=== PATIENT | female | born 1965 | race Caucasian/White ===

== ENCOUNTER 2024-04-16 06:46 | Emergency (ER) | payer MEDICARE, MEDICAID, SELFPAY ==
[2024-04-16 06:53] VITALS: BP 112/45; BP 128/67; PULSE 60; PULSE 65; RESP 16; TEMP 36.6; O2SAT 100; O2SAT 97; BMI 17.0
--- NOTE | 2024-04-16 07:14 | ED.GENADULT ---
HPI - General Adult General Chief complaint: General Medical Stated complaint: pulled out G tube, baseline nonverbal due to CVA Time Seen by Provider: 04/16/24 07:38 Source: EMS Mode of arrival: EMS History of Present Illness HPI narrative: 59 years old female no verbal, with G-tube sent by the residential because she pulled the G-tube out. Patient is unable to give any history at this time Onset (ago): hour(s) (1) Location: abdomen Radiation: non-radiation Severity: mild Relieving factors: none Exacerbating factors: none Related Data Allergies Allergy/AdvReac Type Severity Reaction Status Date / Time No Known Allergies Allergy Verified 04/16/24 06:55 Review of Systems Review of Systems: Yes Unobtainable due to mental condition PMFSH [facility] Narrative: intellectual disability, no verbal, dysphagia, G-tube Social History Social History (Updated 04/16/24 @ 07:17 by Juan Alberto Rashid MD) Household Members Other:: she lives in a residential Unable to assess alcohol history related to: Unable to respond Advance Directives: No Advance Directives Information Provided: No Do you have a plan to hurt others: No Plan Physical Exam ED Vital Signs: Vital Signs - 24 hr 04/16/24 06:53 04/16/24 08:49 Temperature 97.8 F 98 F Pulse Rate 65 78 Respiratory Rate 16 18 Blood Pressure 112/45 L 122/65 Pulse Oximetry 97 Oxygen Delivery Method Room Air Room Air BMI result Body Mass Index 17.0 patient is awake alert not toxic appearing Const General: other ( patient is uncooperative) Nutritional Appearance: malnourished HENIA Head: Yes normal to inspection Neck Neck: Yes normal visual inspection Resp Effort & Inspection: normal respiratory effort Auscultation: clear to auscultation bilaterally Cardio Jugular venous distension: no JVD Rate: regular rate Rhythm: regular rhythm GI Other: abdomen is flat G-tube site he open no redness Inspection: Yes normal to inspection Skin General skin exam: no rashes or lesions noted and elasticity normal Procedures Procedure Narrative Procedure Narrative: G-TUBE INSERTION I placed 20-F Gtube in the stomach easily,good flash Medical Decision Making Medical Decision Making MDM Narrative: patient presented with G-tube dislodged, we will go ahead and replace the G-tube Differential Diagnosis Differential Diagnoses: The differential diagnosis associated with the presentation includes obstruction/G-tube displacement Admission/Observation Consideration of admission/observation: Escalation of care including admission/observation considered Independent Historian Clinical information obtained from an independent historian. History obtained from or confirmed by: Other (residential documentation) External Record Review External record reviewed: Other (residential papers) Chronic Conditions non verbal Discharge Plan Discharge Clinical Impression: Encounter for feeding tube placement Patient Disposition: [facility] Transfer Details: BACK TO [facility] [place] Instructions: How to Use and Care for Your PEG Tube (ED) Referrals: Krisitn Carbajal MD [Primary Care Provider] - Interventions: ED Discharge Assessment Last Done: 04/16/24 08:49 Discharge Date/Time: 04/16/24 08:50 Print Language: Turkish
--- NOTE | 2024-04-16 07:51 | PC.NURSE ---
g tube flushes well, report called to snf
[2024-04-16 08:49] VITALS: BP 122/65; PULSE 78; RESP 18; TEMP 36.6
== END 2024-04-16 08:50 ==
PROVIDERS: Emergency Provider Emergency Medicine; PCP Internal Medicine
DX: Z46.59 Encounter for fitting and adjustment of other gastrointestinal appliance and device (principal)
CPT/HCPCS: 43762; 99284

== ENCOUNTER 2024-09-09 08:14 | Emergency (ER) | payer MEDICARE, MEDICAID, SELFPAY ==
--- NOTE | ~2024-09-09 | XR_ITS ---
CLINICAL HISTORY: G-tube placement 1 view abdomen Comparison: None Findings: There is oral contrast within the proximal jejunal loops without evidence of extravasation. G-tube is projected over the left upper outer quadrant of the abdomen Nonspecific bowel gas Impression: 1. Oral contrast opacifies the proximal jejunal loops without extravasation. No massive pneumoperitoneum. The bowel gas pattern is nonspecific. 2. G-tube projected left upper outer quadrant of the abdomen this may be in the stomach but there is no direct opacification of the stomach fluoroscopy study may be of further diagnostic value to confirm exact positioning This document has been electronically signed by: Christiano Garcia MD on 09/09/2024 09:19:48
[2024-09-09 08:22] VITALS: BP 135/97; PULSE 74; PULSE 87; RESP 16; TEMP 36.4; O2SAT 100; BMI 15.7
[2024-09-09 08:32] VITALS: BP 143/52; PULSE 96; RESP 18; TEMP 36.8; O2SAT 100
--- NOTE | 2024-09-09 08:40 | ED.GENADULT ---
HPI - General Adult General Chief complaint: General Medical Stated complaint: FROM SNF, G-TUBE DISLODGED PER EMS Time Seen by Provider: 09/09/24 08:23 Source: patient Mode of arrival: ambulatory Limitations: no limitations and physical limitation History of Present Illness ED Provider: DR. Shin HPI narrative: 59-year-old female resides at senior care history of CVA with aphasia patient is nonverbal, came in for evaluation of reinsertion of G-tube that the patient pulled out last night. Patient is unable to give a history at this point Related Data Allergies Allergy/AdvReac Type Severity Reaction Status Date / Time No Known Allergies Allergy Verified 09/09/24 08:27 Review of Systems Review of Systems: All other systems are reviewed and are negative Constitutional: Reports as per HPI and Reports no additional constitutional complaints Eyes: Reports as per HPI and Reports no additional eye complaints Reports system reviewed and no additional complaints, except as documented Cardiovascular: Reports as per HPI and Reports no additional cardiovascular complaints Respiratory: Reports as per HPI and Reports no additional respiratory complaints Gastrointestinal: Reports as per HPI and Reports no additional gastrointestinal complaints Genitourinary: Reports no additional female genitourinary complaints Musculoskeletal: Reports no additional musculoskeletal complaints Skin/Breast: Reports system reviewed and no additional complaints, except as docu Psychiatric: Reports no additional psychiatric complaints Endocrine: Reports no additional endocrine complaints Hematologic/Lymphatic: Reports no additional hematologic/lymphatic complaints Allergic/Immunologic: Reports no additional allergic/immunologic complaints Reports system reviewed and no additional complaints, except as documented and Reports Abnormal speech present REPLACED BY [facility] Social History Social History Household Members Other:: she lives in a senior care Unable to assess alcohol history related to: Unable to respond and Unknown Use of substances other than those prescribed or required for medical reasons: Unknown Advance Directives: No Advance Directives Information Provided: No Do you have a plan to hurt others: No Plan Patient : No Physical Exam ED Vital Signs: Vital Signs - 24 hr 09/09/24 08:22 09/09/24 08:32 Temperature 97.6 F 98.3 F Pulse Rate 87 96 Respiratory Rate 16 18 Blood Pressure 135/97 H 143/52 H Pulse Oximetry 100 100 Oxygen Delivery Method Room Air Room Air BMI result Body Mass Index 15.7 Vital signs have been reviewed and appear to be correct. Blood pressure elevated. Heart rate normal. Respiratory rate normal. Temperature normal. Oxygen saturation normal. Appearance: Alert, nonverbal, No acute distress. Head: Normal external exam. Normocephalic. Atraumatic. No Cardoso signs noted. No raccoon eyes noted Eyes: PERRLA. EOMI. Conjunctiva and sclera normal. Eyelids normal. ENT: TM's Normal. Pharynx normal. Uvula midline. Moist mucous membranes. No trismus noted. No drooling noted. No muffled voice noted. Neck: Normal inspection. Neck supple. FROM. No adenopathy. Thyroid Normal. No meningeal signs. No neck mass noted. CVS: Normal heart rate and rhythm. Heart sound normal. No murmurs noted. Pulses normal throughout. Respiratory: No respiratory distress. Painless inspiration. Breath sounds normal. No wheezes/rales/rhonchi noted. Chest nontender. No accessory muscle usage noted or decreased air movement noted. Abdomen: Soft and nontender. Bowel sounds normal in all 4 quadrants. No distention noted. No organomegaly noted. No visible injury noted. Back: No CVA tenderness. Full range of motion noted. Skin: Skin warm and dry. Normal skin color. Normal skin turgor. No rashes/lesions/lacerations noted. Extremities: No lower extremity edema. Extremities exhibit normal range of motion. Extremities nontender. Neuro: Cranial nerve exam: II-XII are grossly intact No motor deficit. No sensory deficit. Reflexes normal. Course Reevaluation(s) Reevaluation #1: S/p G-tube placement the ED, will confirm was x-ray and Gastrografin. Time: 08:44 Reevaluation #2: X-ray was checked no extravasation NG tube is in appropriate position. Time: 09:30 Medical Decision Making Differential Diagnosis Differential Diagnoses: The differential diagnosis associated with the presentation includes (G-tube placement) Admission/Observation Consideration of admission/observation: Escalation of care including admission/observation considered Independent Interpretation I performed an independent interpretation of an: Plain X-Ray (Abdomen:1. Oral contrast opacifies the proximal jejunal loops without extravasation. No massive pneumoperitoneum. The bowel gas pattern is nonspecific. 2. G-tube projected left upper outer quadrant of the abdomen this may be in the stomach but there is no direct opacification of the stomach fluo) Radiology Impression Discussion of test interpretation with radiology: I have reviewed the radiologist's reading. Discharge Plan Discharge Clinical Impression: S/P gastrostomy tube (G tube) placement, follow-up exam Patient Disposition: Xfer SNF Instructions: How to Use and Care for Your PEG Tube (ED) Print Language: Unable To Collect
--- OUTSIDE RECORDS SUMMARY | 2024-09-09 08:55 | XMS_ITS | Encounter Summary ---
Author Organization [employer] Address [address] [place] [address] Care Team Providers Care Senior Controls Analyst Name Role Phone Annie Carbajal MD Primary Care Provider + Encounter Details Date Type Department Care Team (Late st Contact Info) Description 04/06/2024 Lab Requisition [facility] - Main Lab [address] [facility] [place] [address] Annie Carbajal MD [address] [address] Vitamin D deficiency, unspecified; Essential (primary) hypertension Social History Tobacco Use Types Packs/Day Years Used Date Smoking Tobacco: Never Assessed Comments Unknown Sex and Gender Information Value Date Recorded Sex Assigned at Not on file Legal Sex Female 8:46 AM EST Gender Identity Not on file Sexual Orientation Not on file documented as of this encounter Plan of Treatment Not on file documented as of this encounter Procedures Procedure Name Priority Date/Time Associated Diagnosis Comments VITAMIN D 25 HYDROXY Routine 04/06/2024 7:58 AM EST Vitamin D deficiency, unspecified Essential (primary) hypertension COMPLETE BLOOD COUNT Routine 04/06/2024 7:58 AM EST Vitamin D deficiency, unspecified Essential (primary) hypertension COMPREHENSIVE METABOLIC PANEL Routine 04/06/2024 7:58 AM EST Vitamin D deficiency, unspecified Essential (primary) hypertension documented in this encounter Results * Vitamin D 25 hydroxy (04/06/2024 7:58 AM EST) Vit D, 25-Hydroxy 35.7 30.0 - 80.0 ng/mL LAB CHEMISTRY METHOD 04/06/2024 10:30 AM EST [facility] Blood Venous blood specimen / Unknown Venipuncture / Unknown 04/06/2024 7:58 AM EST 04/06/2024 8:50 AM EST us Annie Carbajal MD LAB BLOOD ORDERABLES Fin al Result [facility] [address] [place] [address], * (ABNORMAL) Comprehensive metabolic panel (04/06/2024 7:58 AM EST) Sodium 140 133 - 145 mmol/L LAB CHEMISTRY METHOD 04/06/2024 10:[address] [facility] Potassium 4.0 3.5 - 5.5 mmol/L LAB CHEMISTRY METHOD 04/06/2024 10:[address] [facility] Chloride 104 96 - 110 mmol/L LAB CHEMISTRY METHOD 04/06/2024 10:[address] [facility] CO2 27 21 - 32 mmol/L LAB CHEMISTRY METHOD 04/06/2024 10:[address] [facility] Anion Gap 9 3 - 11 LAB CHEMISTRY METHOD 04/06/2024 10:[address] [facility] Glucose 73 70 - 100 mg/dL LAB CHEMISTRY METHOD 04/06/2024 10:[address] [facility] BUN 29(H) 5 - 25 mg/dL LAB CHEMISTRY METHOD 04/06/2024 10:[address] [facility] Creatinine 0.53 0.50 - 1.10 mg/dL LAB CHEMISTRY METHOD 04/06/2024 10:[address] [facility] eGFR 106 >=60 mL/min/1. 73m2 LAB CHEMISTRY METHOD 04/06/2024 10:[address] [facility] Comment:Calculation based on the??Chronic Kidney Disease Epidemiology Collaboration (CKD-EPI) equation refit??without adjustment for race. BUN/Creatinine Ratio 54.7 LAB CHEMISTRY METHOD 04/06/2024 10:[address] [facility] Calcium 9.3 8.5 - 10.5 mg/dL LAB CHEMISTRY METHOD 04/06/2024 10:[address] [facility] AST (SGOT) 26 10 - 42 unit/L LAB CHEMISTRY METHOD 04/06/2024 10:[address] [facility] ALT (SGPT) 42 10 - 60 unit/L LAB CHEMISTRY METHOD 04/06/2024 10:[address] [facility] Alkaline Phosphatase 78 42 - 121 unit/L LAB CHEMISTRY METHOD 04/06/2024 10:[address] [facility] Total Protein 6.2 6.0 - 8.0 g/dL LAB CHEMISTRY METHOD 04/06/2024 10:[address] [facility] Albumin 3.3 3.2 - 5.0 g/dL LAB CHEMISTRY METHOD 04/06/2024 10:[address] [facility] Total Bilirubin 0.3 0.0 - 1.4 mg/dL LAB CHEMISTRY METHOD 04/06/2024 10:[address] [facility] Blood Venous blood specimen / Unknown Venipuncture / Unknown 04/06/2024 7:58 AM EST 04/06/2024 8:50 AM EST Annie Carbajal MD LAB BLOOD ORDERABLES Fin al Result [facility] [address] [place] [address], * (ABNORMAL) Complete blood count (04/06/2024 7:58 AM EST) WBC 8.4 4.8 - 10.8 K/mcL LAB HEMETOLOGY METHOD 04/06/2024 9:[address] [facility] RBC 4.40 3.80 - 4.80 M/mcL LAB HEMETOLOGY METHOD 04/06/2024 9:[address] [facility] Hemoglobin 12.4 11.5 - 16.0 g/dL LAB HEMETOLOGY METHOD 04/06/2024 9:[address] [facility] Hematocrit 39.7 35.0 - 47.0 % LAB HEMETOLOGY METHOD 04/06/2024 9:[address] [facility] MCV 89.8 79.0 - 98.0 FL LAB HEMETOLOGY METHOD 04/06/2024 9:[address] [facility] MCH 28.1 27.0 - 32.0 pcg LAB HEMETOLOGY METHOD 04/06/2024 9:[address] [facility] MCHC 31.2(L) 32.0 - 37.0 g/dL LAB HEMETOLOGY METHOD 04/06/2024 9:[address] [facility] RDW 13.2 11.0 - 15.0 % LAB HEMETOLOGY METHOD 04/06/2024 9:[address] [facility] Platelets 149 130 - 400 K/mcL LAB HEMETOLOGY METHOD 04/06/2024 9:[address] [facility] MPV 12.8(H) 7.0 - 11.0 FL LAB HEMETOLOGY METHOD 04/06/2024 9:[address] [facility] NRBC 0.0 <1.0 % LAB HEMETOLOGY METHOD 04/06/2024 9:[address] [facility] NRBC Absolute 0.00 <0.10 K/mcL LAB HEMETOLOGY METHOD 04/06/2024 9:[address] [facility] Blood Venous blood specimen / Unknown Venipuncture / Unknown 04/06/2024 7:58 AM EST 04/06/2024 8:50 AM EST Annie Carbajal MD LAB BLOOD ORDERABLES Fin al Result [facility] [address] [place] [address], documented in this encounter Visit Diagnoses Diagnosis Vitamin D deficiency, unspecified Essential (primary) hypertension Unspecified essential hypertension documented in this encounter Care Teams Senior Controls Analyst Relationship Specialty Start Date End Date Annie Carbajal MD [address] [place] [id number] PCP - General Family Medicine 04/06/24 documented as of this encounter
--- OUTSIDE RECORDS SUMMARY | 2024-09-09 08:55 | XMS_ITS ---
Author Name Delonte MARYAM, Mr. Art Hernadez Address [address] [place] [address] Phone [phone] [facility] Care Team Providers Care Application Manager Name Role Phone Kush Martel Unavailable [phone] KrisVenita Unavailable [phone] Reason for Referral Not Available Allergies, adverse reactions, alerts No known allergies History of medication use Medication Class Instructions Start Date End Date Benztropine Mesylate 1 mg Tab TAKE 1 AND 1/2 TABLETS BY MOUTH DAILY 2022-07-13 No Data Available Citalopram Hydrobromide 40 mg Tab TAKE 1 TABLET BY MOUTH DAILY 2022-09-28 No Data Tammy ilable Problem List Problem Status Onset Date Resolved Date History of brain tumor Active 2023-02-08 N/A Feeding by G-tube Active 2023-02-08 N/A Depression, recurrent, mild Active 2023-02-08 N/A Encounters Encounters Type Facility Date of Service Diagnosis/Co mplaint BMI obtained (3008F) [facility] ([place]/2023 Depression, unspecifiedPerso nal history of other specified conditionsUnspecified sequelae of cerebral infarctionGastrostomy status BMI obtained (3008F) [facility]23 BMI obtained (3008F[place] [facility] BMI obtained (3008F[place] [facility]23 Vital Signs Date of Collection Vitals 2023-02-08 08:21:05 Height - 160.02 cmWe ight - 50.35 kgBody Mass Index (BMI) - 19.66 kg/m2 Social History Social History Social History Observation Description Effec tive Time Current Smoking Status Former smoker 2024-08-15 7 Sex Female History of Procedures Procedures Service Procedure code Service date Servicing provider Phone# BMI obtained (3008F) 3008F 2023-02-08 No Data Availab le No Data Available Advance care planning discussed and documented ? advance care plan or surrogate decision-maker was documented in the medical record. (1123F) 1123F 2023-02-08 No Data Available No Data Availa ble Pain Assessment - NO pain present (1126F) 1126F 2023-02-08 No Data Available No Data A vailable Medication List Documented (1159F) 1159F 2023-02-08 No Data Available No Data Tammy ilable Functional Status Functional Category Effective Dates lives with sister/at a house with caregiver, cooking/cleaning: feeding tube 2023-02-08 walking/transfer: able to walk when she needs 2023-02-08 incontinent of stool/urine in the last 3 -4 wks 2023-02-08 Mental Status Status Date aox0, not able to talk for 2023-02-08 Assessments Date of Service Assessments 2023-02-08 08:21:05 DepressionHistory of brain tumorFeeding by G-tube Plan of Care Date of Service Plans 2023-02-08 08:21:05 BMI obtained (3008F) Pain Assessment - NO pain documented (1126F)Advance care planning discussed and documented ? advance care plan or surrogate decision-maker was documented in the medical record. (1123F)Medication List Documented (1159F)Phone (patient, parent, or guardian); 21-30 minutes of medical discussion (no modifier 95)Continue to see PCP. Follow-up with Izabela as needed for any acute or disease education needs that may arise 06/12.RX: citalopram followed and monitored PCP23 yrs ago had brain aneurysm and stroke followed and monitored by PCP RX: benzotropine mesylate for droolingon isosource 250 mL/6 per dayfollowed and monitored by PCP Health Concerns Date Concern 2023-02-08 Visit completed via audio by telephone. Patient/Guardian agreed to visit via telehealth. Introductory visit with Izabela to establish care. Today, patient has chief complaint of: establishing care. Visit completed with sister Maite who is POA as patient is non verbal. Consent obtained to access OC.Reviewed Allergies, Medications, Active Medical conditions, past medical/surgical history, Social history. 2023-02-08 Most recent hospital stay(s) or ER visit(s) and precipitating factors: not known. 2023-02-08 Maite MarshaJADE and sister. 2023-02-08 [facility] chao:
--- OUTSIDE RECORDS SUMMARY | 2024-09-09 08:55 | XMS_ITS | Encounter Summary ---
Author Organization [employer] [facility] Address [address] [place] [address] Care Team Providers Care Control Valve Mechanic Name Role Phone Elder, Annie Nur MD Primary Care Provider + Encounter Details Date Type Department Care Team (Late st Contact Info) Description 05/18/2024 Lab Requisition [facility] - Main Lab [address] [place] [address] [place] [phone] [address] Essential (primary) hypertension Social History Tobacco Use [...] Procedure Name Priority Date/Time Associated Diagnosis Comments COMPREHENSIVE METABOLIC PANEL Routine 05/18/2024 5:15 AM EST Essential (primary) hypertension documented in this encounter Results * (ABNORMAL) Comprehensive metabolic panel (05/18/2024 5:15 AM EST) Sodium 142 133 - 145 mmol/L LAB CHEMISTRY METHOD 05/18/2024 12:33 PM EST [facility] Potassium 4.7 3.5 - 5.5 mmol/L LAB CHEMISTRY METHOD 05/18/2024 12:33 PM EST [facility] Chloride 104 96 - 110 mmol/L LAB CHEMISTRY METHOD 05/18/2024 12:33 PM EST [facility] CO2 32 21 - 32 mmol/L LAB CHEMISTRY METHOD 05/18/2024 12:33 PM EST [facility] Anion Gap 6 3 - 11 LAB CHEMISTRY METHOD 05/18/2024 12:33 PM [facility] Glucose 114(H) 70 - 100 mg/dL LAB CHEMISTRY METHOD 05/18/2024 12:33 PM [facility] BUN 34(H) 5 - 25 mg/dL LAB CHEMISTRY METHOD 05/18/2024 12:33 PM [facility] Creatinine 0.62 0.50 - 1.10 mg/dL LAB CHEMISTRY METHOD 05/18/2024 12:33 PM [facility] eGFR 102 >=60 mL/min/1. 73m2 LAB CHEMISTRY METHOD 05/18/2024 12:33 PM [facility] Comment:Calculation based on the??Chronic Kidney Disease Epidemiology Collaboration (CKD-EPI) equation refit??without adjustment for race. BUN/Creatinine Ratio 54.8 LAB CHEMISTRY METHOD 05/18/2024 12:33 PM [facility] Calcium 9.3 8.5 - 10.5 mg/dL LAB CHEMISTRY METHOD 05/18/2024 12:33 PM [facility] AST (SGOT) 23 10 - 42 unit/L LAB CHEMISTRY METHOD 05/18/2024 12:33 PM [facility] ALT (SGPT) 41 10 - 60 unit/L LAB CHEMISTRY METHOD 05/18/2024 12:33 PM [facility] Alkaline Phosphatase 85 42 - 121 unit/L LAB CHEMISTRY METHOD 05/18/2024 12:33 PM [facility] Total Protein 6.6 6.0 - 8.0 g/dL LAB CHEMISTRY METHOD 05/18/2024 12:33 PM [facility] Albumin 3.1(L) 3.2 - 5.0 g/dL LAB CHEMISTRY METHOD 05/18/2024 12:33 PM [facility] Total Bilirubin 0.3 0.0 - 1.4 mg/dL LAB CHEMISTRY METHOD 05/18/2024 12:33 PM [facility] Blood Venous blood specimen / Unknown Venipuncture / Unknown 05/18/2024 5:15 AM EST 05/18/2024 10:44 AM EST us Jairo Valencia RN LAB BLOOD ORDERABLES Final Resu lt [facility] [address] [place] [address], documented in this encounter Visit Diagnoses Diagnosis Essential (primary) hypertension Unspecified essential hypertension documented in this encounter Care Teams Control Valve Mechanic Relationship Specialty Start Date End Date Annie Carbajal MD [address] [place] [id number] PCP - General Family Medicine 04/06/24 documented as of this encounter
--- OUTSIDE RECORDS SUMMARY | 2024-09-09 08:55 | XMS_ITS | Encounter Summary ---
Author Organization [employer] Address [address] [place] [address] Care Team Providers Care Steam Pressure Chamber Operator Name Role Phone Annie Carbajal MD Primary Care Provider + Encounter Details Date Type Department Care Team (Late st Contact Info) Description 05/30/2024 Lab Requisition [facility] - Main Lab [address] [facility] [place] [address] Annie Carbajal MD [address] [address] Essential (primary) hypertension Social History Tobacco Use Types Packs/Day Years Used Date Smoking Tobacco: Never Assessed Comments Unknown Sex and Gender Information Value Date Recorded Sex Assigned at Not on file Legal Sex Female 8:46 AM EST Gender Identity Not on file Sexual Orientation Not on file documented as of this encounter Plan of Treatment Not on file documented as of this encounter Visit Diagnoses Diagnosis Essential (primary) hypertension Unspecified essential hypertension documented in this encounter Care Teams Steam Pressure Chamber Operator Relationship Specialty Start Date End Date Annie Carbajal MD [address] [place] [id number] PCP - General Family Medicine 04/06/24 documented as of this encounter
--- OUTSIDE RECORDS SUMMARY | 2024-09-09 08:55 | XMS_ITS | Encounter Summary ---
Author Organization [employer] [facility] Address [address] [place] [address] Care Team Providers Care Lay Brother Name Role Phone Annie Carbajal MD Primary Care Provider + Encounter Details Date Type Department Care Team (Late st Contact Info) Description 05/31/2024 Lab Requisition [facility] - Main Lab 299 [facility] [place] [address] Annie Carbajal MD [address] [address] Essential (primary) hypertension Social History Tobacco Use [...] Procedure Name Priority Date/Time Associated Diagnosis Comments BASIC METABOLIC PANEL Routine 06/01/2024 5:14 AM EST Essential (primary) hypertension documented in this encounter Results * (ABNORMAL) Basic metabolic panel (06/01/2024 5:14 AM EST) Sodium 137 133 - 145 mmol/L LAB CHEMISTRY METHOD 06/01/2024 9:23 AM EST [facility] Potassium 4.6 3.5 - 5.5 mmol/L LAB CHEMISTRY METHOD 06/01/2024 9:23 AM EST [facility] Comment:Hemolysis present Chloride 102 96 - 110 mmol/L LAB CHEMISTRY METHOD 06/01/2024 9:23 AM EST [facility] CO2 31 21 - 32 mmol/L LAB CHEMISTRY METHOD 06/01/2024 9:23 AM [facility] Anion Gap 4 3 - 11 LAB CHEMISTRY METHOD 06/01/2024 9:23 AM [facility] Glucose 65(L) 70 - 100 mg/dL LAB CHEMISTRY METHOD 06/01/2024 9:23 AM [facility] BUN 26(H) 5 - 25 mg/dL LAB CHEMISTRY METHOD 06/01/2024 9:23 AM [facility] Creatinine 0.50 0.50 - 1.10 mg/dL LAB CHEMISTRY METHOD 06/01/2024 9:23 AM [facility] eGFR 108 >=60 mL/min/1. 73m2 LAB CHEMISTRY METHOD 06/01/2024 9:23 AM [facility] Comment:Calculation based on the??Chronic Kidney Disease Epidemiology Collaboration (CKD-EPI) equation refit??without adjustment for race. BUN/Creatinine Ratio 52.0 LAB CHEMISTRY METHOD 06/01/2024 9:23 AM [facility] Calcium 9.2 8.5 - 10.5 mg/dL LAB CHEMISTRY METHOD 06/01/2024 9:23 AM [facility] Blood Venous blood specimen / Unknown Venipuncture / Unknown 06/01/2024 5:14 AM EST 06/01/2024 8:40 AM EST us Annie Carbajal MD LAB BLOOD ORDERABLES Fin al Result [facility] [address] [place] [address], documented in this encounter Visit Diagnoses Diagnosis Essential (primary) hypertension Unspecified essential hypertension documented in this encounter Care Teams Lay Brother Relationship Specialty Start Date End Date Annie Carbajal MD [address] [place] [id number] PCP - General Family Medicine 04/06/24 documented as of this encounter
--- OUTSIDE RECORDS SUMMARY | 2024-09-09 08:55 | XMS_ITS | Encounter Summary ---
Author Organization [employer] [facility] Address [address] [place] [address] Care Team Providers Care Drilling Inspector Name Role Phone Annie Carbajal MD Primary Care Provider + Encounter Details Date Type Department Care Team (Late st Contact Info) Description 08/08/2024 Lab Requisition [facility] Lab 299 [facility] [place] [address] Annie Carbajal MD [address] [address] Essential (primary) hypertension Social History Tobacco Use [...] Associated Diagnosis Comments BASIC METABOLIC PANEL Routine 08/09/2024 5:03 AM EDT Essential (primary) hypertension documented in this encounter Results * (ABNORMAL) Basic metabolic panel (08/09/2024 5:03 AM EDT) Sodium 137 133 - 145 mmol/L LAB CHEMISTRY METHOD 08/09/2024 10:37 AM EDT [facility] Potassium 4.4 3.5 - 5.5 mmol/L LAB CHEMISTRY METHOD 08/09/2024 10:37 AM EDT [facility] Chloride 100 96 - 110 mmol/L LAB CHEMISTRY METHOD 08/09/2024 10:37 AM EDT [facility] CO2 30 21 - 32 mmol/L LAB CHEMISTRY METHOD 08/09/2024 10:37 AM EDT [facility] Anion Gap 7 3 - 11 LAB CHEMISTRY METHOD 08/09/2024 10:37 AM [facility] Glucose 76 70 - 100 mg/dL LAB CHEMISTRY METHOD 08/09/2024 10:37 AM [facility] BUN 28(H) 5 - 25 mg/dL LAB CHEMISTRY METHOD 08/09/2024 10:37 AM [facility] Creatinine 0.55 0.50 - 1.10 mg/dL LAB CHEMISTRY METHOD 08/09/2024 10:37 AM [facility] eGFR 105 >=60 mL/min/1. 73m2 LAB CHEMISTRY METHOD 08/09/2024 10:37 AM [facility] Comment:Calculation based on the??Chronic Kidney Disease Epidemiology Collaboration (CKD-EPI) equation refit??without adjustment for race. BUN/Creatinine Ratio 50.9 LAB CHEMISTRY METHOD 08/09/2024 10:37 AM [facility] Calcium 9.2 8.5 - 10.5 mg/dL LAB CHEMISTRY METHOD 08/09/2024 10:37 AM [facility] Blood Venous blood specimen / Unknown Venipuncture / Unknown 08/09/2024 5:03 AM EDT 08/09/2024 9:58 AM EDT us Annie Carbajal MD LAB BLOOD ORDERABLES Fin al Result [facility] [address] [place] [address], [place] [phone] documented in this encounter Visit Diagnoses Diagnosis Essential (primary) hypertension Unspecified essential hypertension documented in this encounter Care Teams Drilling Inspector Relationship Specialty Start Date End Date Annie Carbajal MD [address] [place] [phone] PCP - General Family Medicine 04/06/24 documented as of this encounter
--- OUTSIDE RECORDS SUMMARY | 2024-09-09 08:55 | XMS_ITS | Encounter Summary ---
Author Organization [facility] [facility] Address [address] [place] [address] Care Team Providers Care Help Desk Agent Name Role Phone Annie Carbajal MD Primary Care Provider + Encounter Details Date Type Department Care Team (Late st Contact Info) Description 04/10/[address] [facility] Lab 299 [facility] [place] [address] Annie Carbajal MD [address] [address] Underweight Social History Tobacco Use Types Packs/Day Years Used Date Smoking Tobacco: Never Assessed Comments Unknown Sex and Gender Information Value Date Recorded Sex Assigned at Not on file Legal Sex Female 8:46 AM EST Gender Identity Not on file Sexual Orientation Not on file documented as of this encounter Plan of Treatment Scheduled Orders Name Type Priority Associated Diagnoses Orde r Schedule Comprehensive metabolic panel Lab Routine Underweight Ordered: 04/10/2024 documented as of this encounter Procedures Procedure Name Priority Date/Time Associated Diagnosis Comments COMPLETE BLOOD COUNT Routine 04/10/2024 6:29 AM EST Underweight documented in this encounter Results * (ABNORMAL) Complete blood count (04/10/2024 6:29 AM EST) WBC 6.0 4.8 - 10.8 [facility] LAB HEMETOLOGY METHOD 04/10/2024 9:17 AM EST [facility] RBC 4.40 3.80 - 4.80 M/[facility] LAB HEMETOLOGY METHOD 04/10/2024 9:17 AM EST [facility] Hemoglobin 12.4 11.5 - 16.0 g/dL LAB HEMETOLOGY METHOD 04/10/2024 9:17 AM [facility] Hematocrit 39.2 35.0 - 47.0 % LAB HEMETOLOGY METHOD 04/10/2024 9:17 AM [facility] MCV 89.3 79.0 - 98.0 FL LAB HEMETOLOGY METHOD 04/10/2024 9:17 AM [facility] MCH 28.2 27.0 - 32.0 pcg LAB HEMETOLOGY METHOD 04/10/2024 9:17 AM [facility] MCHC 31.6(L) 32.0 - 37.0 g/dL LAB HEMETOLOGY METHOD 04/10/2024 9:17 AM [facility] RDW 13.3 11.0 - 15.0 % LAB HEMETOLOGY METHOD 04/10/2024 9:17 AM [facility] Platelets 142 130 - 400 K/mcL LAB HEMETOLOGY METHOD 04/10/2024 9:17 AM [facility] MPV 12.8(H) 7.0 - 11.0 FL LAB HEMETOLOGY METHOD 04/10/2024 9:17 AM [facility] NRBC 0.0 <1.0 % LAB HEMETOLOGY METHOD 04/10/2024 9:17 AM [facility] NRBC Absolute 0.00 <0.10 K/mcL LAB HEMETOLOGY METHOD 04/10/2024 9:17 AM [facility] Blood Venous blood specimen / Unknown Venipuncture / Unknown 04/10/2024 6:29 AM EST 04/10/2024 8:23 AM EST us Annie Carbajal MD LAB BLOOD ORDERABLES Fin al Result [facility] [address] [place] [address], documented in this encounter Visit Diagnoses Diagnosis Underweight documented in this encounter Care Teams Help Desk Agent Relationship Specialty Start Date End Date Annie Carbajal MD [address] [place] [address] PCP - General Family Medicine 04/06/24 documented as of this encounter
--- OUTSIDE RECORDS SUMMARY | 2024-09-09 08:55 | XMS_ITS | Encounter Summary ---
Author Organization [employer] Address [address] [place] [address] Care Team Providers Care Block Hacker Name Role Phone Annie Carbajal MD Primary Care Provider + Encounter Details Date Type Department Care Team (Late st Contact Info) Description 08/23/2024 Lab Requisition [facility] - Main Lab 299 [facility] [place] [address] Annie Carbajal MD [address] [facility] [address] [place] [address] Unspecified severe protein-calorie malnutrition (CMS/HCC V24); Hemiplegia and hemiparesis following cerebral infarction affecting left non-dominant side (CMS/HCC V24, CMS/HCC V28); Encounter for screening for diabetes mellitus Social History Tobacco Use Types Packs/Day Years [...] Procedure Name Priority Date/Time Associated Diagnosis Comments LIPID PANEL WITH REFLEX TO DIRECT LDL Routine 08/23/2024 7:35 AM EDT Unspecified severe protein-calorie malnutrition (CMS/HCC V24) Hemiplegia and hemiparesis following cerebral infarction affecting left non-dominant side (CMS/HCC V24, CMS/HCC V28) Encounter for screening for diabetes mellitus COMPLETE BLOOD COUNT Routine 08/23/2024 7:35 AM EDT Unspecified severe protein-calorie malnutrition (CMS/HCC V24) Hemiplegia and hemiparesis following cerebral infarction affecting left non-dominant side (CMS/HCC V24, CMS/HCC V28) Encounter for screening for diabetes mellitus THYROID STIMULATING HORMONE Routine 08/23/2024 7:35 AM EDT Unspecified severe protein-calorie malnutrition (CMS/HCC V24) Hemiplegia and hemiparesis following cerebral infarction affecting left non-dominant side (CMS/HCC V24, CMS/HCC V28) Encounter for screening for diabetes mellitus HEMOGLOBIN A1C Routine 08/23/2024 7:35 AM EDT Unspecified severe protein-calorie malnutrition (CMS/HCC V24) Hemiplegia and hemiparesis following cerebral infarction affecting left non-dominant side (CMS/HCC V24, CMS/HCC V28) Encounter for screening for diabetes mellitus COMPREHENSIVE METABOLIC PANEL Routine 08/23/2024 7:35 AM EDT Unspecified severe protein-calorie malnutrition (CMS/HCC V24) Hemiplegia and hemiparesis following cerebral infarction affecting left non-dominant side (CMS/HCC V24, CMS/HCC V28) Encounter for screening for diabetes mellitus documented in this encounter Results * Hemoglobin A1c (08/23/2024 7:35 AM EDT) Hemoglobin A1C 5.5 <6.5 % LAB CHEMISTRY METHOD 08/23/2024 1:46 PM EDT [facility] Mean Bld Glu Estim. 111 mg/dL LAB CHEMISTRY METHOD 08/23/2024 1:46 PM EDT [facility] Blood Venous blood specimen / Unknown 08/23/2024 7:35 AM EDT 08/23/2024 11:42 AM EDT us Annie Carbajal MD LAB BLOOD ORDERABLES Fin al Result [facility] [address] [place] [address], * Thyroid stimulating hormone (08/23/2024 7:35 AM EDT) TSH 1.17 0.40 - 4.00 mcIU/mL LAB CHEMISTRY METHOD 08/23/2024 12:52 PM EDT [facility] Blood Venous blood specimen / Unknown Venipuncture / Unknown 08/23/2024 7:35 AM EDT 08/23/2024 10:27 AM EDT Annie Carbajal MD LAB BLOOD ORDERABLES Fin al Result Performing Organization Address City/[facility]/ZIP Co de Phone Number [facility] [address] [place] [address], * Lipid panel with reflex to direct LDL (08/23/2024 7:35 AM EDT) Cholesterol 174 0 - 200 mg/dL LAB CHEMISTRY METHOD 08/23/2024 11:56 AM EDT [facility] Triglycerides 61 0 - 150 mg/dL LAB CHEMISTRY METHOD [facility]/23[facility]24 11[facility] HDL 76 >=40 mg/dL LAB CHEMISTRY METHOD 08/23/2024 11:56 AM T [facility] LDL Calculated 86 0 - 100 mg/dL LAB CHEMISTRY METHOD 08/23/2024 11:56 AM [facility] VLDL Cholesterol [place] 12.2 mg/dL LAB CHEMISTRY METHOD 08/23/2024 11:56 AM [facility] Non HDL Chol. (LDL+VLDL) 98 <145 mg/dL LAB CHEMISTRY METHOD 08/23/2024 11:56 AM EDT [facility] Chol/HDL Ratio 2.3 0.0 - 4.4 LAB CHEMISTRY METHOD 08/23/2024 11:56 AM [facility] Blood Venous blood specimen / Unknown Venipuncture / Unknown 08/23/2024 7:35 AM EDT 08/23/2024 10:27 AM EDT us Annie Carbajal MD LAB BLOOD ORDERABLES Fin al Result [facility] [address] [place] [address], [place] [phone] * Comprehensive metabolic panel (08/23/2024 7:35 AM EDT) Sodium 139 133 - 145 mmol/L LAB CHEMISTRY METHOD 08/23/2024 12:03 PM [facility] Potassium 4.1 3.5 - 5.5 mmol/L LAB CHEMISTRY METHOD 08/23/2024 12:03 PM [facility] Chloride 100 96 - 110 mmol/L LAB CHEMISTRY METHOD 08/23/2024 12:03 PM [facility] CO2 31 21 - 32 mmol/L LAB CHEMISTRY METHOD 08/23/2024 12:03 PM [facility] Anion Gap 8 3 - 11 LAB CHEMISTRY METHOD 08/23/2024 12:03 PM [facility] Glucose 75 70 - 100 mg/dL LAB CHEMISTRY METHOD 08/23/2024 12:03 PM [facility] BUN 24 5 - 25 mg/dL LAB CHEMISTRY METHOD 08/23/2024 12:03 PM [facility] Creatinine 0.52 0.50 - 1.10 mg/dL LAB CHEMISTRY METHOD 08/23/2024 12:03 PM [facility] eGFR 107 >=60 mL/min/1. 73m2 LAB CHEMISTRY METHOD 08/23/2024 12:03 PM [facility] Comment:Calculation based on the??Chronic Kidney Disease Epidemiology Collaboration (CKD-EPI) equation refit??without adjustment for race. BUN/Creatinine Ratio 46.2 LAB CHEMISTRY METHOD 08/23/2024 12:03 PM [facility] Calcium 9.5 8.5 - 10.5 mg/dL LAB CHEMISTRY METHOD 08/23/2024 12:03 PM [facility] AST (SGOT) 27 10 - 42 unit/L LAB CHEMISTRY METHOD 08/23/2024 12:03 PM T [facility] ALT (SGPT) 49 10 - 60 unit/L LAB CHEMISTRY METHOD 08/23/2024 12:03 PM [facility] Alkaline Phosphatase 91 42 - 121 unit/L LAB CHEMISTRY METHOD 08/23/2024 12:03 PM [facility] Total Protein 7.1 6.0 - 8.0 g/dL LAB CHEMISTRY METHOD 08/23/2024 12:03 PM [facility] Albumin 3.6 3.2 - 5.0 g/dL LAB CHEMISTRY METHOD 08/23/2024 12:03 PM [facility] Total Bilirubin 0.7 0.0 - 1.4 mg/dL LAB CHEMISTRY METHOD 08/23/2024 12:03 PM [facility] Blood Venous blood specimen / Unknown Venipuncture / Unknown 08/23/2024 7:35 AM EDT 08/23/2024 10:27 AM EDT us Annie Carbajal MD LAB BLOOD ORDERABLES Fin al Result [facility] [address] [place] [address], * (ABNORMAL) Complete blood count (08/23/2024 7:35 AM EDT) WBC 6.6 4.8 - 10.8 K/mcL LAB HEMETOLOGY METHOD 08/23/2024 11:46 AM EDT [facility] RBC 4.80 3.80 - 4.80 M/mcL LAB HEMETOLOGY METHOD 08/23/2024 11:46 AM EDT [facility] Hemoglobin 13.7 11.5 - 16.0 g/dL LAB HEMETOLOGY METHOD 08/23/2024 11:46 AM EDT [facility] Hematocrit 43.3 35.0 - 47.0 % LAB HEMETOLOGY METHOD 08/23/2024 11:46 AM EDT [facility] MCV 89.5 79.0 - 98.0 FL LAB HEMETOLOGY METHOD 08/23/2024 11:[facility] MCH 28.3 27.0 - 32.0 pcg LAB HEMETOLOGY METHOD 08/23/2024 11:46 AM EDT [facility] MCHC 31.6(L) 32.0 - 37.0 g/dL LAB HEMETOLOGY METHOD 08/23/2024 11:46 AM EDT [facility] RDW 13.4 11.0 - 15.0 % LAB HEMETOLOGY METHOD 08/23/2024 11:46 AM [facility] Platelets 171 130 - 400 K/mcL LAB HEMETOLOGY METHOD 08/23/2024 11:46 AM EDT [facility] MPV 12.6(H) 7.0 - 11.0 FL LAB HEMETOLOGY METHOD 08/23/2024 11:46 AM T [facility] NRBC 0.0 <1.0 % LAB HEMETOLOGY METHOD 08/23/2024 11:46 AM [facility] NRBC Absolute 0.00 <0.10 K/mcL LAB HEMETOLOGY METHOD 08/23/2024 11:46 AM T [facility] Blood Venous blood specimen / Unknown Venipuncture / Unknown 08/23/2024 7:35 AM EDT 08/23/2024 10:27 AM EDT us Annie Carbajal MD LAB BLOOD ORDERABLES Fin al Result [facility] [address] [place] [address], documented in this encounter Visit Diagnoses Diagnosis Unspecified severe protein-calorie malnutrition (CMS/HCC V24) Hemiplegia and hemiparesis following cerebral infarction affecting left non- dominant side (CMS/HCC V24, CMS/HCC V28) Encounter for screening for diabetes mellitus documented in this encounter Care Teams Block Hacker Relationship Specialty Start Date End Date Annie Carbajal MD [address] [place] [address] PCP - General Family Medicine 04/06/24 documented as of this encounter
--- OUTSIDE RECORDS SUMMARY | 2024-09-09 08:55 | XMS_ITS | Clinical Summary ---
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 V28); Underweight; Adult failure to thrive; Essential (primary) hypertension; Encounter for screening for diabetes mellitus 08/23/2024 Lab Requisition [facility] [address] [place] [phone] Annie Carbajal MD Unspecified severe protein-calorie malnutrition ([facility] V24); Hemiplegia and hemiparesis following cerebral infarction affecting left non-dominant side ([facility] V24, [facility] V28); Encounter for screening for diabetes mellitus 08/08/2024 Lab Requisition [facility] [address] [place] [phone] Annie Carbajal MD Essential (primary) hypertension from Last 3 Months Social History Tobacco Use Types Packs/Day Years Used Date Smoking Tobacco: Never Assessed Comments Unknown Sex and Gender Information Value Date Recorded Sex Assigned at Not on file Legal Sex Female 8:46 AM EST Gender Identity Not on file Sexual Orientation Not on file Plan of Treatment Health Maintenance Due Date Last Done Comments Breast Cancer Screening 1965 DTaP,Tdap,and Td Vaccines (1 - Tdap) 02/20/1983 Cervical Cancer Screening: Pap Smear 02/20/1985 Pneumococcal Vaccine: 50+ Years (1 of 1 - PCV) 02/20/2014 Zoster Vaccines (1 of 2) 02/20/2014 COVID-19 Vaccine ( season) 2024 Colorectal Cancer Screening: Colonoscopy 04/06/2024 Depression Screening 04/06/2024 HIV Screening 04/06/2024 Hepatitis C Screening 04/06/2024 Medicare Annual Wellness Visit 04/06/2024 Social Influencers of Health Screening 04/06/2024 Influenza Vaccine (Season Ended) 2025 Hypertension/CHF/CAD Annual BMP Blood Test 08/29/2025 08/29/2024, 08/23/2024, 08/09/2024, Additional history exists Cholesterol Screening (Lipid Panel) 08/29/2029 08/29/2024, 08/23/2024 RSV Immunization Adult Patients (1 - 1-dose 75+ series) 02/20/2039 HIB Vaccines Aged Out No longer eligi ble based on patient's age to complete this topic HPV Vaccines Aged Out No longer eligi ble based on patient's age to complete this topic Hepatitis A Vaccines Aged Out No long er eligible based on patient's age to complete this topic Hepatitis B Vaccines Aged Out No long er eligible based on patient's age to complete this topic IPV Vaccines Aged Out No longer eligi ble based on patient's age to complete this topic MMR Vaccines Aged Out No longer eligi ble based on patient's age to complete this topic Meningococcal ACWY Vaccine Aged Out N o longer eligible based on patient's age to complete this topic Meningococcal B Vaccine Aged Out No l onger eligible based on patient's age to complete this topic Pneumococcal Vaccine: Pediatrics (0 to 5 Years) and At-Risk Patients (6 to 64 Years) Aged Out No longer eligible based on patient's age to complete this topic RSV Immunization Patients Under 20 months Aged Out No longer eligible based on patient's age to complete this topic Varicella Vaccines Aged Out No longer eligible based on patient's age to complete this topic Procedures Procedure Name Priority Date/Time Associated Diagnosis Comments THYROID STIMULATING HORMONE Routine 08/29/2024 9:15 AM EDT Gastrostomy status ([facility] V24, [facility] V28) Underweight Adult failure to thrive Essential (primary) hypertension Encounter for screening for diabetes mellitus HEMOGLOBIN A1C Routine 08/29/2024 9:15 AM EDT Gastrostomy status (CMS/HCC V24, CMS/HCC V28) Underweight Adult failure to thrive Essential (primary) hypertension Encounter for screening for diabetes mellitus LIPID PANEL WITH REFLEX TO DIRECT LDL Routine 08/29/2024 9:15 AM EDT Gastrostomy status (CMS/HCC V24, CMS/HCC V28) Underweight Adult failure to thrive Essential (primary) hypertension Encounter for screening for diabetes mellitus COMPREHENSIVE METABOLIC PANEL Routine 08/29/2024 9:15 AM EDT Gastrostomy status (CMS/HCC V24, CMS/HCC V28) Underweight Adult failure to thrive Essential (primary) hypertension Encounter for screening for diabetes mellitus COMPLETE BLOOD COUNT Routine 08/29/2024 9:15 AM EDT Gastrostomy status (CMS/HCC V24, CMS/HCC V28) Underweight Adult failure to thrive Essential (primary) hypertension Encounter for screening for diabetes mellitus HEMOGLOBIN [...] V28) Encounter for screening for diabetes mellitus LIPID PANEL WITH REFLEX TO DIRECT LDL Routine 08/23/2024 7:35 AM EDT Unspecified severe protein-calorie malnutrition (CMS/HCC V24) Hemiplegia and hemiparesis following cerebral infarction affecting left non-dominant side (CMS/HCC V24, CMS/HCC V28) Encounter for screening for diabetes mellitus COMPREHENSIVE METABOLIC PANEL Routine 08/23/2024 7:35 AM EDT Unspecified severe protein-calorie malnutrition (CMS/HCC V24) Hemiplegia and hemiparesis following cerebral infarction affecting left non-dominant side ([facility] V24, [facility] V28) Encounter for screening for diabetes mellitus COMPLETE BLOOD COUNT Routine 08/23/2024 7:35 AM EDT Unspecified severe protein-calorie malnutrition ([facility] V24) Hemiplegia and hemiparesis following cerebral infarction affecting left non-dominant side ([facility] V24, [facility] V28) Encounter for screening for diabetes mellitus BASIC METABOLIC PANEL Routine 08/09/2024 5:03 AM EDT Essential (primary) hypertension from Last 3 Months Results * Lipid panel with reflex to direct LDL (08/29/2024 9:15 AM EDT) Only the most recent of2 resultswithin the time period is included. Cholesterol 169 0 - 200 mg/dL LAB CHEMISTRY METHOD 08/29/2024 7:30 PM [facility] Triglycerides 83 0 - 150 mg/dL LAB CHEMISTRY METHOD 08/29/2024 7:30 PM [facility] HDL 77 >=40 mg/dL LAB CHEMISTRY METHOD 08/29/2024 7:30 PM [facility] LDL Calculated 75 0 - 100 mg/dL LAB CHEMISTRY METHOD 08/29/2024 7:30 PM [facility] VLDL Cholesterol [place] 16.6 mg/dL LAB CHEMISTRY METHOD 08/29/2024 7:30 PM [facility] Non HDL Chol. (LDL+VLDL) 92 <145 mg/dL LAB CHEMISTRY METHOD 08/29/2024 7:30 PM [facility] Chol/HDL Ratio 2.2 0.0 - 4.4 LAB CHEMISTRY METHOD 08/29/2024 7:30 PM [facility] Blood Venous blood specimen / Unknown Venipuncture / Unknown 08/29/2024 9:15 AM EDT 08/29/2024 11:16 AM EDT us Annie Carbajal MD LAB BLOOD ORDERABLES Fin al Result [facility] [address] [place] [address], * (ABNORMAL) Complete blood count (08/29/2024 9:15 AM EDT) Only the most recent of2 resultswithin the time period is included. WBC 5.7 4.8 - 10.8 K/mcL LAB HEMETOLOGY METHOD 08/29/2024 12:47 PM EDT [facility] RBC 5.10(H) 3.80 - 4.80 M/mcL LAB HEMETOLOGY METHOD 08/29/2024 12:47 PM EDT [facility] Hemoglobin 14.3 11.5 - 16.0 g/dL LAB HEMETOLOGY METHOD 08/29/2024 12:47 PM EDT [facility] Hematocrit 46.3 35.0 - 47.0 % LAB HEMETOLOGY METHOD 08/29/2024 12:47 PM EDT [facility] MCV 90.3 79.0 - 98.0 FL LAB HEMETOLOGY METHOD 08/29/2024 12:47 PM EDT [facility] MCH 27.9 27.0 - 32.0 pcg LAB HEMETOLOGY METHOD 08/29/2024 12:47 PM EDT [facility] MCHC 30.9(L) 32.0 - 37.0 g/dL LAB HEMETOLOGY METHOD 08/29/2024 12:47 PM EDT [facility] RDW 13.1 11.0 - 15.0 % LAB HEMETOLOGY METHOD 08/29/2024 12:47 PM EDT [facility] Platelets 180 130 - 400 K/mcL LAB HEMETOLOGY METHOD 08/29/2024 12:47 PM EDT [facility] MPV 12.5(H) 7.0 - 11.0 FL LAB HEMETOLOGY METHOD 08/29/2024 12:47 PM EDT [facility] NRBC 0.0 <1.0 % LAB HEMETOLOGY METHOD 08/29/2024 12:47 PM EDT [facility] NRBC Absolute 0.00 <0.10 K/mcL LAB HEMETOLOGY METHOD 08/29/2024 12:47 PM EDT [facility] Blood Venous blood specimen / Unknown Venipuncture / Unknown 08/29/2024 9:15 AM EDT 08/29/2024 11:16 AM EDT Annie Carbajal MD LAB BLOOD ORDERABLES Fin al Result Performing Organization Address City/[facility]/ZIP Co de Phone Number [facility] [address] [place] [address], * Thyroid stimulating hormone (08/29/2024 9:15 AM EDT) Only the most recent of2 resultswithin the time period is included. Pathologist [facility] TSH 0.72 0.40 - 4.00 mcIU/mL LAB CHEMISTRY METHOD 08/29/2024 7:55 PM EDT [facility] Blood Venous blood specimen / Unknown Venipuncture / Unknown 08/29/2024 9:15 AM EDT 08/29/2024 11:16 AM EDT Annie Carbajal MD LAB BLOOD ORDERABLES Fin al Result [facility] [address] [place] [address], * Hemoglobin A1c (08/29/2024 9:15 AM EDT) Only the most recent of2 resultswithin the time period is included. Hemoglobin A1C 5.6 <6.5 % LAB CHEMISTRY METHOD 08/29/2024 1:47 PM T [facility] Mean Bld Glu Estim. 114 mg/dL LAB CHEMISTRY METHOD 08/29/2024 1:47 PM [facility] Blood Venous blood specimen / Unknown Venipuncture / Unknown 08/29/2024 9:15 AM EDT 08/29/2024 11:16 AM EDT us Anine Carbajal MD LAB BLOOD ORDERABLES Fin al Result [facility] [address] [place] [address], [place] [phone] * (ABNORMAL) Comprehensive metabolic panel (08/29/2024 9:15 AM EDT) Only the most recent of2 resultswithin the time period is included. Sodium 138 133 - 145 mmol/L LAB CHEMISTRY METHOD 08/29/2024 7:30 PM [facility] Potassium 4.0 3.5 - 5.5 mmol/L LAB CHEMISTRY METHOD 08/29/2024 7:30 PM [facility] Chloride 99 96 - 110 mmol/L LAB CHEMISTRY METHOD 08/29/2024 7:30 PM [facility] CO2 30 21 - 32 mmol/L LAB CHEMISTRY METHOD 08/29/2024 7:30 PM [facility] Anion Gap 9 3 - 11 LAB CHEMISTRY METHOD 08/29/2024 7:30 PM [facility] Glucose 102(H) 70 - 100 mg/dL LAB CHEMISTRY METHOD 08/29/2024 7:30 PM [facility] BUN 24 5 - 25 mg/dL LAB CHEMISTRY METHOD 08/29/2024 7:30 PM [facility] Creatinine 0.53 0.50 - 1.10 mg/dL LAB CHEMISTRY METHOD 08/29/2024 7:30 PM [facility] eGFR 106 >=60 mL/min/1. 73m2 LAB CHEMISTRY METHOD 08/29/2024 7:30 PM [facility] Comment:Calculation based on the??Chronic Kidney Disease Epidemiology Collaboration (CKD-EPI) equation refit??without adjustment for race. BUN/Creatinine Ratio 45.3 LAB CHEMISTRY METHOD 08/29/2024 7:30 PM [facility] Calcium 9.5 8.5 - 10.5 mg/dL LAB CHEMISTRY METHOD 08/29/2024 7:30 PM [facility] AST (SGOT) 16 10 - 42 unit/L LAB CHEMISTRY METHOD 08/29/2024 7:30 PM [facility] ALT (SGPT) 31 10 - 60 unit/L LAB CHEMISTRY METHOD 08/29/2024 7:30 PM [facility] Alkaline Phosphatase 90 42 - 121 unit/L LAB CHEMISTRY METHOD 08/29/2024 7:30 PM [facility] Total Protein 6.9 6.0 - 8.0 g/dL LAB CHEMISTRY METHOD 08/29/2024 7:30 PM [facility] Albumin 3.7 3.2 - 5.0 g/dL LAB CHEMISTRY METHOD 08/29/2024 7:30 PM [facility] Total Bilirubin 0.6 0.0 - 1.4 mg/dL LAB CHEMISTRY METHOD 08/29/2024 7:30 PM [facility] Blood Venous blood specimen / Unknown Venipuncture / Unknown 08/29/2024 9:15 AM EDT 08/29/2024 11:16 AM EDT us Annie Carbajal MD LAB BLOOD ORDERABLES Fin al Result [facility] [address] [place] [address], [place] [phone] * (ABNORMAL) Basic metabolic panel (08/09/2024 5:03 AM EDT) Sodium 137 133 - 145 mmol/L LAB CHEMISTRY METHOD 08/09/2024 10:37 AM [facility] Potassium 4.4 3.5 - 5.5 mmol/L LAB CHEMISTRY METHOD 08/09/2024 10:37 AM [facility] Chloride 100 96 - 110 mmol/L LAB CHEMISTRY METHOD 08/09/2024 10:37 AM [facility] CO2 30 21 - 32 mmol/L LAB CHEMISTRY METHOD 08/09/2024 10:37 AM [facility] Anion Gap 7 3 - 11 LAB CHEMISTRY METHOD 08/09/2024 10:37 AM [facility] Glucose 76 70 - 100 mg/dL LAB CHEMISTRY METHOD 08/09/2024 10:37 AM [facility] BUN 28(H) 5 - 25 mg/dL LAB CHEMISTRY METHOD 08/09/2024 10:37 AM [facility] Creatinine 0.55 0.50 - 1.10 mg/dL LAB CHEMISTRY METHOD 08/09/2024 10:37 AM [facility] eGFR 105 >=60 mL/min/1. 73m2 LAB CHEMISTRY METHOD 08/09/2024 10:37 AM [facility] Comment:Calculation based on the??Chronic Kidney Disease Epidemiology Collaboration (CKD-EPI) equation refit??without adjustment for race. BUN/Creatinine Ratio 50.9 LAB CHEMISTRY METHOD 08/09/2024 10:37 AM [facility] Calcium 9.2 8.5 - 10.5 mg/dL LAB CHEMISTRY METHOD 08/09/2024 10:37 AM [facility] Blood Venous blood specimen / Unknown Venipuncture / Unknown 08/09/2024 5:03 AM EDT 08/09/2024 9:58 AM EDT us Annie Carbajal MD LAB BLOOD ORDERABLES Fin al Result [facility] [address] [place] [address], [place] [phone] from Last 3 Months Insurance MEDICAID - [place] MEDICARE Care Teams Shell Sieve Operator Relationship Specialty Start Date End Date Annie Carbajal MD [address] [place] [id number] PCP - General Family Medicine 04/06/24
--- NOTE | 2024-09-09 08:59 | PC.NURSE ---
Provider in to see patient, new g tube (16f) was placed and confirmed by xray. Demographic given to secretary receptionist to arrange transport back to facility.
[2024-09-09 09:32] VITALS: BP 103/62; PULSE 69; RESP 16; TEMP 36.8; O2SAT 100
--- NOTE | 2024-09-09 09:45 | PC.NURSE ---
Called [facility] for warm hand over. Spoke to Bartolome and notified on patients expected discharge [facility]
[2024-09-09 09:49] VITALS: BP 103/62; PULSE 69; RESP 16; TEMP 36.8; O2SAT 100
--- NOTE | 2024-09-09 10:44 | PC.NURSE ---
report given to SABINA forde.
== END 2024-09-09 10:44 | disposition skilled nursing facility (03) ==
PROVIDERS: Emergency Provider Emergency Medicine; PCP Internal Medicine
DX: Z43.1 Encounter for attention to gastrostomy (principal)
CPT/HCPCS: 74019; 99283; 99284

== ENCOUNTER → 2024-09-09 08:50 | Outpatient (BNV) | payer MEDICARE, MEDICAID, SELFPAY | PROVIDERS: Emergency Provider Emergency Medicine; PCP Internal Medicine; Visit Provider Radiology Diagnostic Radiology | DX: Z93.1 Gastrostomy status (principal) | CPT/HCPCS: 74019 ==

== ENCOUNTER 2024-09-23 11:49 | Emergency (ER) | payer MEDICARE, MEDICAID, SELFPAY ==
--- NOTE | ~2024-09-23 | XR_ITS ---
CLINICAL HISTORY: g tube placement --- Additional Notes or Special Instructions: need contrast Single view of the abdomen. COMPARISON: XR abdomen dated 09/09/24 at 08:41 EDT FINDINGS: Gastrostomy tube overlies the stomach. Contrast administered through the gastrostomy tube opacifies the fundus and body of the stomach. No extraluminal contrast identified. Normal bowel distention. No abnormal calcifications. No pneumoperitoneum identified. Mild stool burden. No fracture identified. Visualized portions of the lung bases were unremarkable. IMPRESSION: 1. Gastrostomy tube appears appropriately seated within the stomach without evidence of leak. This document has been electronically signed by: Dario Grant MD on 09/23/2024 13:00:27
[2024-09-23 11:56] VITALS: BP 121/67; BP 128/56; PULSE 77; PULSE 83; RESP 20; TEMP 36.5; O2SAT 100; O2SAT 99; BMI 19.5
[2024-09-23 12:22] VITALS: BP 128/56; PULSE 83; RESP 16; TEMP 36.9; O2SAT 99
--- NOTE | 2024-09-23 12:23 | ED_ITS ---
HPI - General Adult General Chief complaint: General Medical Stated complaint: g tube issue Time Seen by Provider: 09/23/24 11:53 History of Present Illness HPI narrative: patient is a 59-year-old female pulled out her G-tube sent in for further evaluation baseline nonverbal. Related Data Allergies Allergy/AdvReac Type Severity Reaction Status Date / Time No Known Allergies Allergy Verified 09/23/24 11:58 Review of Systems Review of Systems: Unable to obtain review of systems secondary to patien PMF Social History Social History Household Members Other:: she lives in a long term Unable to assess alcohol history related to: Unable to respond and Unknown Advance Directives: No Advance Directives Information Provided: No Do you have a plan to hurt others: No Plan Physical Exam ED Vital Signs: Vital Signs - 24 hr 09/23/24 11:56 09/23/24 12:22 Temperature 97.7 F 98.4 F Pulse Rate 83 83 Respiratory Rate 20 16 Blood Pressure 128/56 L 128/56 L Pulse Oximetry 99 99 Oxygen Delivery Method Room Air Room Air BMI result Body Mass Index 19.5 Appearance: Alert. contracted Eyes: Pupils equal, round and reactive to light. ENT: Pharynx normal. Neck: Normal inspection. Neck supple. No lymph nodes noted. No crepitus CVS: Normal heart rate and rhythm. Pulses normal. Normal S1 and S2 Respiratory: No respiratory distress. Breath sounds normal. No Wheezing. No rales Abdomen: Soft and nontender. No rigidity. No distention. good BS x4 Skin: Skin warm and dry. Normal skin color. Normal skin turgor. Extremities: No lower extremity edema. Neurovascular intact to all extremities. No Lacerations. No Rash Neuro: contract awake alert Medications Administered Discontinued Medications Generic Name Dose Route Start Last Admin Trade Name Freq PRN Reason Stop Dose Admin Diatrizoate Meglum/Diatrizoate Sod 20 ml 09/23/24 12:36 09/23/24 12:38 Diatrizoate Meglumine, Sodium 120 Ml Solution PO 09/23/24 12:37 20 ml ONCE ONE Administration Procedures Procedure Narrative Procedure Narrative: patient's abdomen was cleaned with Betadine. A 20 Cuban G-tube was inserted. Balloon cuff the up to 10 cc. There is no complication. The G-tube was then dressed. Medical Decision Making Medical Decision Making [facility] Narrative: G-tube was displaced. It was a 20f G-tube. Replaced it there was no complication x-ray confirms placement patient to be disch Admission/Observation Consideration of admission/observation: Escalation of care including admission/observation considered G-tube dislodged no need to no need to stay as G-tube was replaced Lab Data [facility] Lab Attestation statement: I reviewed the patient's lab results. Independent Interpretation I performed an independent interpretation of an: Plain X-Ray ( good placement of the G-tube) Radiology Impression Discussion of test interpretation with radiology: I have reviewed the radiologist's reading. Independent Historian Clinical information obtained from an independent historian. History obtained from or confirmed by: EMS External Record Review External record reviewed: Inpatient record Discharge Plan Discharge Clinical Impression: Gastrostomy tube dysfunction Patient Disposition: Home, Self-Care Instructions: How to Use and Care for Your PEG Tube (DC) Referrals: Physician,Unknown J [Primary Care Provider] - 10/01/24 Print Language: Unable To Collect
[2024-09-23] MEDS: Diatrizoate Meglumine, Sodium 120 ML SOLUTION 20 ML PO (12:38)
--- NOTE | 2024-09-23 13:00 | PC.NURSE ---
new 20 turkmen g-tube placed by pt tolerated well. placement confirmed by [facility].
--- NOTE | 2024-09-23 14:01 | PC.NURSE ---
report given to SUDARSHAN Akins at [facility] at this time.
[2024-09-23 14:06] VITALS: BP 109/47; PULSE 83; RESP 18; TEMP 36.7; O2SAT 95
--- NOTE | 2024-09-23 14:40 | PC.NURSE ---
pt incontinent of urine - pericare performed. new brief placed.
[2024-09-23 15:14] VITALS: BP 109/47; PULSE 83; RESP 18; TEMP 36.7; O2SAT 95
--- NOTE | 2024-09-23 15:14 | PC.NURSE ---
report given to SABINA forde at this time. pt leaving [facility] ED.
== END 2024-09-23 15:14 | disposition home or self-care (01) ==
PROVIDERS: Emergency Provider Emergency Medicine Emergency Medical Services
DX: K94.20 Gastrostomy complication, unspecified (principal)
CPT/HCPCS: 49440; 74018; 99283; 99284

== ENCOUNTER → 2024-09-23 12:16 | Outpatient (BNV) | payer MEDICARE, MEDICAID, SELFPAY | PROVIDERS: Emergency Provider Emergency Medicine Emergency Medical Services; Visit Provider Radiology Diagnostic Radiology | DX: Z93.1 Gastrostomy status (principal) | CPT/HCPCS: 74018 ==

== ENCOUNTER 2024-11-16 17:03 | Emergency (ER) | payer MEDICARE, MEDICAID, SELFPAY ==
--- NOTE | ~2024-11-16 | XR_ITS ---
CLINICAL HISTORY: g tube replacement Single view of the abdomen. COMPARISON: XR abdomen dated 09/23/24 at 12:29 EDT FINDINGS: Gastrostomy tube overlies the stomach. Contrast was administered through the gastrostomy tube opacifies the body of the stomach and loops of proximal small bowel within the mid and left hemiabdomen. No extravasation of contrast identified. Multiple air-filled loops of distended large and small bowel. No pneumoperitoneum identified. No abnormal calcifications. No fracture identified. IMPRESSION: 1. Gastrostomy tube appears appropriately seated within the stomach without evidence of leak. 2. Multiple air-filled loops of distended large and small bowel suggestive of ileus versus distal obstruction. This document has been electronically signed by: Dario Grant MD on 11/16/2024 18:55:29
[2024-11-16 17:10] VITALS: BP 102/54; BP 120/65; PULSE 82; PULSE 90; RESP 17; TEMP 36.9; O2SAT 95; BMI 21.5
--- OUTSIDE RECORDS SUMMARY | 2024-11-16 17:31 | XMS_ITS ---
Author Name Delonte MARYAM, Mr. Art Hernadez Address [address] [place] [address] Phone [phone] Organization [facility] Care Team Providers Care Ornamental Metal Erector Apprentice Name Role Phone Kush Martel Unavailable [phone] Kris Venita Unavailable [phone] Reason for Referral Not Available Allergies, adverse [...] List Problem Status Onset Date Resolved Date Synopsis History of brain tumor Active 2023-02-08 N/A 23 yrs ago had brain aneurysm and stroke followed and monitored by PCP RX: benzotropine mesylate for drooling Feeding by G-tube Active 2023-02-08 N/A on isos ource 250 mL/6 per dayfollowed and monitored by PCP Depression, recurrent, mild Active 2023-02-08 N/A RX: citalopram f ollowed and monitored PCP Encounters Encounters Type Facility Date of Service Diagnosis/Co mplaint BMI obtained (3008F) [facility]2023 Depression, unspecifiedPerso nal history of other specified conditionsUnspecified sequelae of cerebral infarctionGastrostomy status BMI obtained (3008F) [facility]20[place] BMI obtained (3008F[place] [facility]20[place] BMI obtained (3008F[place] [facility]/2023 Vital Signs Date of Collection Vitals 2023-02-08 08:21:05 Height - 160.02 cmWe ight - 50.35 kgBody Mass Index (BMI) - 19.66 kg/m2 Social History Social History Social History Observation Description Effec tive Time Current Smoking Status Former smoker 4 Sex Female History of Procedures Procedures Service Procedure code Service date Servicing provider Phone# BMI obtained (3008F) 3008F 2023-02-08 No Data Availab le No Data Available Advance care planning discussed and documented advance care plan or surrogate decision-maker was [...] documented (1126F)Advance care planning discussed and documented advance care plan or surrogate decision-maker was [...] and precipitating factors: not known. 2023-02-08 Maite Larson-KAIFabiana and sister. 2023-02-08 Open HEDIS Measure r jeremie:
--- NOTE | 2024-11-16 17:56 | ED_ITS ---
HPI - General Adult General Chief complaint: General Medical Stated complaint: pulled out g-tube Time Seen by Provider: 11/16/24 17:37 Source: RN notes reviewed Mode of arrival: EMS Limitations: other ( nonverbal and demented) History of Present Illness ED Provider: HPI narrative: patient is nonverbal with a history of CVA and dementia came from residential as she pulled out her G-tube just prior to arrival Related Data Allergies Allergy/AdvReac Type Severity Reaction Status Date / Time No Known Allergies Allergy Verified 11/16/24 17:13 Review of Systems Review of Systems: Yes Unobtainable due to mental status PMF Social History Social History Household Members Other:: she lives in a residential Unable to assess alcohol history related to: Unable to respond Use of substances other than those prescribed or required for medical reasons: Unable to respond Advance Directives: No Advance Directives Information Provided: No Physical Exam ED Vital Signs: Vital Signs - 24 hr 11/16/24 17:10 11/16/24 18:46 Temperature 98.5 F 98.5 F Pulse Rate 90 90 Respiratory Rate 17 17 Blood Pressure 102/54 L 102/54 L Pulse Oximetry 95 95 Oxygen Delivery Method Room Air Room Air BMI result Body Mass Index 21.5 Appearance: Alert. nonverbal. No acute distress. Eyes: no pallor or icterus ENT: Pharynx normal Oral Mucosa Neck: Normal inspection. Neck supple. CVS: Normal heart rate and rhythm. Pulses normal. Respiratory: No respiratory distress. Equal air entry bilateral, no wheezing/rales/rhonchi Abd: soft, not tender gaseous distended G-tube stoma intact Skin: Skin warm and dry. Normal skin color. Normal skin turgor. Extremities: No lower extremity edema, Neuro: alert and awake nonverbal Medications Administered Discontinued Medications Generic Name Dose Route Start Last Admin Trade Name Freq PRN Reason Stop Dose Admin Diatrizoate Meglum/Diatrizoate Sod 30 ml 11/16/24 18:10 11/16/24 18:18 Diatrizoate Meglumine, Sodium 120 Ml Solution PO 11/16/24 18:11 30 ml ONCE ONE Administration Procedures Feeding Tube Replacement Type of Tube: gastrostomy Insertion Site Prior to Procedure: clean Tube Used for Reinsertion: Bard Kazakh Tube Size (F): 22 Balloon size (mL): 10 Verification of Placement: KUB and gastrografin injection Tube Secured by: tape/dressing Patient Tolerated Procedure: well Medical Decision Making Radiology Impression Discussion of test interpretation with radiology: I have reviewed the radiologist's reading. Radiologist Impression: [address] [address] XRay Report Signed Patient: Carol Emery MR#: [id number] : 1965 Acct:[id number] Age/Sex: 59 / F ADM Date: 11/16/24 Loc: .ED Attending Dr: Ordering Physician: Flip Quiroz MD Date of Service: 11/16/24 Procedure(s): XR KUB Accession Number(s): [id number] cc: Annie Carbajal MD; Flip Quiroz MD~ CLINICAL HISTORY: g tube replacement Single view of the abdomen. COMPARISON: XR abdomen dated 09/23/24 at 12:29 EDT FINDINGS: Gastrostomy tube overlies the stomach. Contrast was administered through the gastrostomy tube opacifies the body of the stomach and loops of proximal small bowel within the mid and left hemiabdomen. No extravasation of contrast identified. Multiple air-filled loops of distended large and small bowel. No pneumoperitoneum identified. No abnormal calcifications. No fracture identified. IMPRESSION: 1. Gastrostomy tube appears appropriately seated within the stomach without evidence of leak. 2. Multiple air-filled loops of distended large and small bowel suggestive of ileus versus distal obstruction. This document has been electronically signed by: Dario Grant MD on 11/16/2024 18:55:29 Discharge Plan Discharge Clinical Impression: Gastrostomy tube in place Patient Disposition: Xfer SNF Transfer Details: 22 Kazakh G-tube was replaced Instructions: How to Use and Care for Your PEG Tube (DC) Interventions: ED Discharge Assessment Last Done: 11/16/24 18:46 Discharge Date/Time: 11/16/24 18:48 Print Language: Unable To Collect
--- NOTE | 2024-11-16 18:21 | PC.NURSE ---
#22Fr g tube placed at bedside by ; placement verified by xray with contrast injected via gtube by MD; dressings to area and pt to return to SNF; attempts to call report unsuccessful at this time
[2024-11-16 18:46] VITALS: BP 102/54; PULSE 90; RESP 17; TEMP 36.9; O2SAT 95
== END 2024-11-16 18:48 | disposition skilled nursing facility (03) ==
PROVIDERS: Emergency Provider Internal Medicine; PCP Internal Medicine
DX: K94.29 Other complications of gastrostomy (principal); Z86.73 Personal history of transient ischemic attack (TIA), and cerebral infarction without residual deficits
CPT/HCPCS: 43762; 74018; 99283

== ENCOUNTER → 2024-11-16 17:57 | Outpatient (BNV) | payer MEDICARE, MEDICAID, SELFPAY | PROVIDERS: Emergency Provider Internal Medicine; PCP Internal Medicine; Visit Provider Radiology Diagnostic Radiology | DX: T85.528A Displacement of other gastrointestinal prosthetic devices, implants and grafts, initial encounter (principal); K63.89 Other specified diseases of intestine; Z93.1 Gastrostomy status | CPT/HCPCS: 74018 ==

== ENCOUNTER 2025-02-27 22:21 | Emergency (ER) | payer MEDICARE, MEDICAID, SELFPAY ==
--- NOTE | ~2025-02-27 | XR_ITS ---
CLINICAL HISTORY: s p G tube replacement 1 view abdomen Comparison: X-ray of the abdomen from 11/16/2024 Findings: Enteric contrast utilized by another service. Percutaneous enteric tube likely terminates in the distal stomach lumen bulb new midabdomen noncontrast noted in the small intestine and imaged stomach. No definite small bowel obstruction. Severe stool burden noted distally. Mild atelectasis of the imaged lung bases. No definite osseous change in the [id number] imaged osseous structures. Vascular calcifications noted. IMPRESSION: Enteric tube terminates in the distal stomach. No small bowel obstruction. This document has been electronically signed by: Troy Jaffe MD on 02/28/2025 00:50:05
[2025-02-27 22:31] VITALS: BP 118/78; PULSE 98; O2SAT 100
[2025-02-27 22:39] VITALS: BMI 16.1
[2025-02-27 22:41] VITALS: BP 127/57; PULSE 75; RESP 18; TEMP 36.3; O2SAT 97
--- OUTSIDE RECORDS SUMMARY | 2025-02-27 22:59 | XMS_ITS | Clinical Summary ---
Author Organization [address] [facility] Address [address] [place] [address] Phone Care Team Providers Care Authorization Manager Name Role Phone Elder, Annie Nur MD Primary Care Provider + Social History Tobacco Use Types Packs/Day Years Used Date Smoking Tobacco: Never Assessed Comments Unknown Sex and Gender Information Value Date Recorded Sex Assigned at Not on file Legal Sex Female 8:46 AM EST Gender Identity Not on file Sexual Orientation Not on file Plan of Treatment Health Maintenance Due Date Last Done Comments Breast Cancer Screening 1965 Colorectal Cancer Screening: Colonoscopy 1965 DTaP,Tdap,and Td Vaccines (1 - Tdap) 02/20/1983 Cervical Cancer Screening: P ap Smear 02/20/1985 Pneumococcal Vaccine: 50+ Years (1 of 1 - PCV) 02/20/2014 Zoster Vaccines (1 of 2) 02/20/2014 HIV Screening 04/06/2024 Hepatitis C Screening 04/06/2024 Medicare Annual Wellness Visit 04/06/2024 Social Influencers of Health Screening 04/06/2024 Depression Screening 05/16/2024 COVID-19 Vaccine (1 - 2023-2 5 season) 2025 Influenza Vaccine (#1) 2025 Cholesterol Screening (Lipid Panel) 08/29/2029 08/29/2024, 08/23/2024 [...] 20 months Aged Out No longer eligible b ased on patient's age to complete this topic Varicella Vaccines Aged Out No longer eligible based on patient's age to complete this topic Procedures Procedure Name Priority Date/Time Associated Diagnosis Comments LIPID PANEL WITH REFLEX TO DIRECT LDL Routine 08/29/2024 9:15 AM EDT Gastrostomy status ([facility] V24, [facility] V28) Underweight Adult failure to thrive Essential (primary) hypertension Encounter for screening for diabetes mellitus from Last 3 Months or Most Recently Relevant to Health Maintenance Results * Lipid panel with reflex to direct LDL (08/29/2024 9:15 AM EDT) Cholesterol 169 0 - 200 mg/dL LAB CHEMISTRY METHOD 08/29/2024 7:30 PM [facility] Triglycerides 83 0 - 150 mg/dL LAB CHEMISTRY METHOD 08/29/2024 7:30 PM [facility] HDL 77 >=40 mg/dL LAB CHEMISTRY METHOD 08/29/2024 7:30 PM [facility] LDL Calculated 75 0 - 100 mg/dL LAB CHEMISTRY METHOD 08/29/2024 7:30 PM [facility] VLDL Cholesterol Salomón 16.6 mg/dL LAB CHEMISTRY METHOD 08/29/2024 7:30 PM [facility] Non HDL Chol. (LDL+VLDL) 92 <145 mg/dL LAB CHEMISTRY METHOD 08/29/2024 7:30 PM [facility] Chol/HDL Ratio 2.2 0.0 - 4.4 LAB CHEMISTRY METHOD 08/29/2024 7:30 PM [facility] Blood Venous blood specimen / Unknown Venipuncture / Unknown 08/29/2024 9:15 AM EDT 08/29/2024 11:16 AM EDT us Annie Carbajal MD LAB BLOOD ORDERABLES Fin al Result [facility] [address] [place] [address], [place] [phone] from Last 3 Months or Most Recently Relevant to Health Maintenance Insurance MEDICA[place] - [place] MEDICARE Care Teams Authorization Manager Relationship Specialty Start Date End Date Annie Carbajal MD [address] [address] PCP - General Family Medicine 04/06/24
--- OUTSIDE RECORDS SUMMARY | 2025-02-27 22:59 | XMS_ITS ---
Author Name Delonte MARYAM, Mr. Art Hernadez Address [address] [place] [address] Phone [phone] [facility] Care Team Providers Care Barrel Bridge Assembler Name Role Phone Kush Martel Unavailable [phone] Kris Venita Unavailable [phone] Reason for Referral Not Available Allergies, adverse [...] of Service Diagnosis/Co mplaint BMI obtained (3008F) [facility]2023 Depression, unspecifiedPerso nal history of other specified conditionsUnspecified sequelae of cerebral infarctionGastrostomy status BMI obtained (3008F) [facility] BMI obtained (3008F[place] [facility]/08[place] BMI obtained (3008F[place] [facility]/2023 Vital Signs Date of Collection Vitals 2023-02-08 08:21:05 Height - 160.02 cmWe ight - 50.35 kgBody Mass Index (BMI) - 19.66 kg/m2 Social History Social History Social History Observation Description Effec tive Time Current Smoking Status Former smoker 2025-02-13 5 Sex Female History of Procedures Procedures Service [...]
--- OUTSIDE RECORDS SUMMARY | 2025-02-27 22:59 | XMS_ITS | Encounter Summary ---
Author Organization [facility] Address [address] [place] [address] Care Team Providers Care Clinical Physician Assistant Name Role Phone Elder, Annie Nur MD Primary Care Provider + Encounter Details Date Type Department Care Team (Late st Contact Info) Description 09/12/2024 Lab Requisition [facility] Lab [address] [place] [address] Kiara Golden NP [address] [place] [address] Cerebral infarction, unspecified (CMS/HCC V24, CMS/HCC V28) Social History Tobacco Use Types Packs/Day Years [...] Procedure Name Priority Date/Time Associated Diagnosis Comments VALPROIC ACID LEVEL, TOTAL Routine 09/12/2024 5:21 AM EDT Cerebral infarction, unspecified (CMS/HCC V24, CMS/HCC V28) documented in this encounter Results * (ABNORMAL) Valproic acid level, total (09/12/2024 5:21 AM EDT) Valproic Acid, Total 31(L) 50 - 100 mcg/mL LAB CHEMISTRY METHOD 09/12/2024 6:06 PM EDT [facility] Blood Venous blood specimen / Unknown Venipuncture / Unknown 09/12/2024 5:21 AM EDT 09/12/2024 11:35 AM EDT Kiara Golden NP LAB BLOOD ORDERABLES Final Resul t [facility] ([facility] LAB [address] [place] [address], documented in this encounter Visit Diagnoses Diagnosis Cerebral infarction, unspecified (CMS/HCC V24, CMS/HCC V28) documented in this encounter Care Teams Clinical Physician Assistant Relationship Specialty Start Date End Date Annie Carbajal MD [address] [place] [address] PCP - General Family Medicine 04/06/24 documented as of this encounter
--- OUTSIDE RECORDS SUMMARY | 2025-02-27 22:59 | XMS_ITS | Encounter Summary ---
Author Organization [employer] [facility] Address [address] [place] [address] Care Team Providers Care Air Battle Manager Name Role Phone Annie Carbajal MD Primary Care Provider + Encounter Details Date Type Department Care Team (Late st Contact Info) Description 05/31/2024 Lab Requisition [facility] - Main Lab [address] [facility] [place] [address] Annie Carbajal MD [address] [address] Essential (primary) hypertension Social History Tobacco Use [...] LAB CHEMISTRY METHOD 06/01/2024 9:23 AM EST [facility] Potassium 4.6 3.5 - 5.5 mmol/L LAB CHEMISTRY METHOD 06/01/2024 9:23 AM EST [facility] Comment:Hemolysis present Chloride 102 96 - 110 mmol/L LAB CHEMISTRY METHOD 06/01/2024 9:23 AM EST [facility] CO2 31 21 - 32 mmol/L LAB CHEMISTRY METHOD 06/01/2024 9:23 AM [facility] Anion Gap 4 3 - 11 LAB CHEMISTRY METHOD 06/01/2024 9:23 AM [facility] Glucose 65(L) 70 - 100 mg/dL LAB CHEMISTRY METHOD 06/01/2024 9:23 AM [facility] BUN 26(H) 5 - 25 mg/dL LAB CHEMISTRY METHOD 06/01/2024 9:23 AM [facility] Creatinine 0.50 0.50 - 1.10 mg/dL LAB CHEMISTRY METHOD 06/01/2024 9:23 AM [facility] eGFR 108 >=60 mL/min/1. 73m2 LAB CHEMISTRY METHOD 06/01/2024 9:23 AM [facility] Comment:Calculation based on the Chronic Kidney Disease Epidemiology Collaboration (CKD-EPI) equation refit without adjustment for race. BUN/Creatinine Ratio 52.0 LAB CHEMISTRY METHOD 06/01/2024 9:23 AM [facility] Calcium 9.2 8.5 - 10.5 mg/dL LAB CHEMISTRY METHOD 06/01/2024 9:23 AM [facility] Blood Venous blood specimen / Unknown Venipuncture / Unknown 06/01/2024 5:14 AM EST 06/01/2024 8:40 AM EST us Annie Carbajal MD LAB BLOOD ORDERABLES Fin al Result [facility] [address] [place] [address], documented in this encounter Visit Diagnoses Diagnosis Essential (primary) hypertension Unspecified essential hypertension documented in this encounter Care Teams Air Battle Manager Relationship Specialty Start Date End Date Annie Carbajal MD [address] [address] PCP - General Family Medicine 04/06/24 documented as of this encounter
--- OUTSIDE RECORDS SUMMARY | 2025-02-27 22:59 | XMS_ITS | Encounter Summary ---
Author Organization [facility] Address [address] [place] [address] Care Team Providers Care Phosphoric Acid Operator Name Role Phone Annie Carbajal MD Primary Care Provider + Encounter Details Date Type Department Care Team (Late st Contact Info) Description 08/29/2024 Lab Requisition [facility] - Main Lab [address] [facility] [place] [address] Annie Carbajal MD [address] [address] Gastrostomy status ([facility] V24, [facility] V28); Underweight; Adult failure to thrive; Essential (primary) hypertension; Encounter for screening for diabetes mellitus Social [...] Routine 08/29/2024 9:15 AM EDT Gastrostomy status ([facility] V24, [facility] V28) Underweight Adult failure to thrive Essential (primary) hypertension Encounter for screening for diabetes mellitus COMPLETE BLOOD COUNT Routine 08/29/2024 9:15 AM EDT Gastrostomy status ([facility] V24, [facility] V28) Underweight Adult failure to thrive Essential (primary) hypertension Encounter for screening for diabetes mellitus THYROID STIMULATING HORMONE Routine 08/29/2024 9:15 AM EDT Gastrostomy status ([facility] V24, [facility] V28) Underweight Adult failure to thrive Essential (primary) hypertension Encounter for screening for diabetes mellitus HEMOGLOBIN A1C Routine 08/29/2024 9:15 AM EDT [place]ast[place] status ([facility] [place], [facility] [place]28) Underweight Adult failure to thrive Essential (primary) hypertension Encounter for screening for diabetes mellitus COMPREHENSIVE METABOLIC PANEL Routine 08/29/2024 9:15 AM EDT Gastrostomy status ([facility] [place], [facility] [place]28) Underweight Adult failure to thrive Essential (primary) hypertension Encounter for screening for diabetes mellitus documented in this encounter Results * Thyroid stimulating hormone (08/29/2024 9:15 AM EDT) [facility] TSH 0.72 0.40 - 4.00 mcIU/mL LAB CHEMISTRY METHOD 08/29/2024 7:55 PM EDT [facility] Blood Venous blood specimen / Unknown Venipuncture / Unknown 08/29/2024 9:15 AM EDT 08/29/2024 11:16 AM EDT Annie Carbajal MD LAB BLOOD ORDERABLES Fin al Result [facility] [address] [place] [address], * Hemoglobin A1c (08/29/2024 9:15 AM EDT) [facility] Hemoglobin A1C 5.6 <6.5 % LAB CHEMISTRY METHOD 08/29/2024 1:47 PM EDT [facility] Mean Bld Glu Estim. 114 mg/dL LAB CHEMISTRY METHOD 08/29/2024 1:47 PM EDT [facility] Blood Venous blood specimen / Unknown Venipuncture / Unknown 08/29/2024 9:15 AM EDT 08/29/2024 11:16 AM EDT Annie Carbajal MD LAB BLOOD ORDERABLES Fin al Result [facility] [address] [place] [address], [place] [phone] * Lipid panel with reflex to direct LDL (08/29/2024 9:15 AM EDT) Cholesterol 169 0 - 200 mg/dL LAB CHEMISTRY METHOD 08/29/2024 7:30 PM EDT [facility] Triglycerides 83 0 - 150 mg/dL LAB CHEMISTRY METHOD 08/29/2024 7:30 PM EDT [facility] HDL 77 >=40 mg/dL LAB CHEMISTRY METHOD 08/29/2024 7:30 PM EDT [facility] LDL Calculated 75 0 - 100 mg/dL LAB CHEMISTRY METHOD 08/29/2024 7:30 PM EDT [facility] VLDL Cholesterol Salom[place] 16.6 mg/dL LAB CHEMISTRY METHOD 08/29/2024 7:30 PM EDT [facility] Non HDL Chol. (LDL+VLDL) 92 <145 mg/dL LAB CHEMISTRY METHOD 08/29/2024 7:30 PM EDT [facility] Chol/HDL Ratio 2.2 0.0 - 4.4 LAB CHEMISTRY METHOD [facility]/29[facility]24 [facility] Blood Venous blood specimen / Unknown Venipuncture / Unknown 08/29/2024 9:15 AM EDT 08/29/2024 11:16 AM EDT Annie Carbajal MD LAB BLOOD ORDERABLES Fin al Result [facility] [address] [place] [address], [place] [phone] * (ABNORMAL) Comprehensive metabolic panel (08/29/2024 9:15 AM EDT) Sodium 138 133 - 145 mmol/L LAB [...] [facility] Comment:Calculation based on the Chronic Kidney Disease Epidemiology Collaboration (CKD-EPI) equation refit without adjustment for race. BUN/Creatinine Ratio 45.3 LAB [...] unit/L LAB CHEMISTRY METHOD 08/29/2024 7:30 PM EDT [facility] Total Protein 6.9 6.0 - 8.0 g/dL LAB CHEMISTRY METHOD 08/29/2024 7:30 PM EDT [facility] Albumin 3.7 3.2 - 5.0 g/dL LAB CHEMISTRY METHOD 08/29/2024 7:30 PM T [facility] Total Bilirubin 0.6 0.0 - 1.4 mg/dL LAB CHEMISTRY METHOD 08/29/2024 7:30 PM EDT [facility] Blood Venous blood specimen / Unknown Venipuncture / Unknown 08/29/2024 9:15 AM EDT 08/29/2024 11:16 AM EDT us Annie Carbajal MD LAB BLOOD ORDERABLES Fin al Result [facility] [address] [place] [address], * (ABNORMAL) Complete blood count (08/29/2024 9:15 AM EDT) WBC 5.7 4.8 - 10.8 K/mcL LAB HEMETOLOGY METHOD 08/29/2024 12:47 PM T [facility] RBC 5.10(H) 3.80 - 4.80 M/mcL LAB HEMETOLOGY METHOD 08/29/2024 12:47 PM EDT [facility] Hemoglobin 14.3 11.5 - 16.0 g/dL LAB HEMETOLOGY METHOD 08/29/2024 12:47 PM EDT [facility] Hematocrit 46.3 35.0 - 47.0 % LAB HEMETOLOGY METHOD 08/29/2024 12:47 PM EDT [facility] MCV 90.3 79.0 - 98.0 FL LAB HEMETOLOGY METHOD 08/29/2024 12:47 PM EDT [facility] MCH 27.9 27.0 - 32.0 pcg LAB HEMETOLOGY METHOD 08/29/2024 12:47 PM EDT [facility] MCHC 30.9(L) 32.0 - 37.0 g/dL LAB HEMETOLOGY METHOD 08/29/2024 12:47 PM EDT [facility] RDW 13.1 11.0 - 15.0 % LAB HEMETOLOGY METHOD 08/29/2024 12:47 PM EDT [facility] Platelets 180 130 - 400 K/mcL LAB HEMETOLOGY METHOD 08/29/2024 12:47 PM EDT [facility] MPV 12.5(H) 7.0 - 11.0 FL LAB HEMETOLOGY METHOD 08/29/2024 12:47 PM EDT [facility] NRBC 0.0 <1.0 % LAB HEMETOLOGY METHOD 08/29/2024 12:47 PM EDT [facility] NRBC Absolute 0.00 <0.10 K/mcL LAB HEMETOLOGY METHOD 08/29/2024 12:47 PM EDT [facility] Blood Venous blood specimen / Unknown Venipuncture / Unknown 08/29/2024 9:15 AM EDT 08/29/2024 11:16 AM EDT us Annie Carbajal MD LAB BLOOD ORDERABLES Fin al Result [facility] [address] [place] [address], documented in this encounter Visit Diagnoses Diagnosis Gastrostomy status (CMS/HCC V24, CMS/HCC V28) Gastrostomy status Underweight Adult failure to thrive Essential (primary) hypertension Unspecified essential hypertension Encounter for screening for diabetes mellitus documented in this encounter Care Teams Phosphoric Acid Operator Relationship Specialty Start Date End Date Annie Carbajal MD [address] [address] PCP - General Family Medicine 04/06/24 documented as of this encounter
--- OUTSIDE RECORDS SUMMARY | 2025-02-27 22:59 | XMS_ITS | Encounter Summary ---
Author Organization [employer] [facility] Address [address] [place] [address] Care Team Providers Care Septic Tank Setter Name Role Phone Annie Carbajal MD Primary Care Provider + Encounter Details Date Type Department Care Team (Late st Contact Info) Description 04/10/2024 Lab Requisition [facility] - Main Lab [address] [facility] [place] [address] Annie Carbajal MD [address] [address] Underweight Social History Tobacco Use Types Packs/Day [...] AM EST) WBC 6.0 4.8 - 10.8 K/[facility] LAB HEMETOLOGY METHOD 04/10/2024 9:17 AM EST [facility] RBC 4.40 3.80 - 4.80 M/[facility] LAB HEMETOLOGY METHOD 04/10/2024 9:17 AM EST [facility] Hemoglobin 12.4 11.5 - 16.0 g/dL LAB HEMETOLOGY METHOD 04/10/2024 9:17 AM [facility] Hematocrit 39.2 35.0 - 47.0 % LAB HEMETOLOGY METHOD 04/10/2024 9:17 AM [facility] MCV 89.3 79.0 - 98.0 FL LAB HEMETOLOGY METHOD 04/10/2024 9:17 AM [facility] MCH 28.2 27.0 - 32.0 pcg LAB HEMETOLOGY METHOD 04/10/2024 9:17 AM [facility] MCHC 31.6(L) 32.0 - 37.0 g/dL LAB HEMETOLOGY METHOD 04/10/2024 9:17 AM [facility] RDW 13.3 11.0 - 15.0 % LAB HEMETOLOGY METHOD 04/10/2024 9:17 AM [facility] Platelets 142 130 - 400 K/mcL LAB HEMETOLOGY METHOD 04/10/2024 9:17 AM [facility] MPV 12.8(H) 7.0 - 11.0 FL LAB HEMETOLOGY METHOD 04/10/2024 9:17 AM [facility] NRBC 0.0 <1.0 % LAB HEMETOLOGY METHOD 04/10/2024 9:17 AM [facility] NRBC Absolute 0.00 <0.10 K/mcL LAB HEMETOLOGY METHOD 04/10/2024 9:17 AM [facility] Blood Venous blood specimen / Unknown Venipuncture / Unknown 04/10/2024 6:29 AM EST 04/10/2024 8:23 AM EST us Annie Carbajal MD LAB BLOOD ORDERABLES Fin al Result [facility] [address] [place] [address], documented in this encounter Visit Diagnoses Diagnosis Underweight documented in this encounter Care Teams Septic Tank Setter Relationship Specialty Start Date End Date Annie Carbajal MD [address] [place] [address] PCP - General Family Medicine 04/06/24 documented as of this encounter
--- OUTSIDE RECORDS SUMMARY | 2025-02-27 22:59 | XMS_ITS | Encounter Summary ---
Author Organization [employer] Address [address] [place] [address] Care Team Providers Care Senior Product Engineer Name Role Phone Annie Carbajal MD Primary Care Provider + Encounter Details Date Type Department Care Team (Late st Contact Info) Description 08/23/2024 Lab Requisition [facility] - Main Lab 299 [facility] [place] [address] Annie Carbajal MD [address] [facility] 1 [place] [address] Unspecified severe protein-calorie malnutrition (CMS/HCC [...] LAB CHEMISTRY METHOD 08/23/2024 1:46 PM EDT [facility] Mean Bld Glu Estim. 111 mg/dL LAB CHEMISTRY METHOD 08/23/2024 1:46 PM EDT [facility] Blood Venous blood specimen / Unknown 08/23/2024 7:35 AM EDT 08/23/2024 11:42 AM EDT us Annie Carbajal MD LAB BLOOD ORDERABLES Fin al Result [facility] [address] [place] [address], * Thyroid stimulating hormone (08/23/2024 7:35 AM EDT) TSH 1.17 0.40 - 4.00 mcIU/mL LAB CHEMISTRY METHOD 08/23/2024 12:52 PM EDT [facility] Blood Venous blood specimen / Unknown Venipuncture / Unknown 08/23/2024 7:35 AM EDT 08/23/2024 10:27 AM EDT Annie Carbajal MD LAB BLOOD ORDERABLES Fin al Result Performing Organization Address City/[facility]/ZIP Co de Phone Number [facility] [address] [place] [address], * Lipid panel with reflex to direct LDL (08/23/2024 7:35 AM EDT) Cholesterol 174 0 - 200 mg/dL LAB CHEMISTRY METHOD 08/23/2024 11:56 AM EDT [facility] Triglycerides 61 0 - 150 mg/dL LAB CHE[facility]STRY [facility] HDL 76 >=40 mg/dL LAB CHEMISTRY METHOD 08/23/2024 11:56 AM T [facility] LDL Calculated 86 0 - 100 mg/dL LAB CHEMISTRY METHOD 08/23/2024 11:56 AM [facility] VLDL Cholesterol [place] 12.2 mg/dL LAB CHEMISTRY METHOD 08/23/2024 11:56 AM [facility] Non HDL Chol. (LDL+VLDL) 98 <145 mg/dL LAB CHEMISTRY METHOD 08/23/2024 11:56 AM EDT [facility] Chol/HDL Ratio 2.3 0.0 - 4.4 LAB CHEMISTRY METHOD 08/23/2024 11:56 AM [facility] Blood Venous blood specimen / Unknown Venipuncture / Unknown 08/23/2024 7:35 AM EDT 08/23/2024 10:27 AM EDT us Annie Carbajal MD LAB BLOOD ORDERABLES Fin al Result [facility] [address] [place] [address], [place] [phone] * Comprehensive metabolic panel (08/23/2024 7:35 AM EDT) Sodium 139 133 - 145 mmol/L LAB CHEMISTRY METHOD 08/23/2024 12:03 PM [facility] Potassium 4.1 3.5 - 5.5 mmol/L LAB CHEMISTRY METHOD 08/23/2024 12:03 PM [facility] Chloride 100 96 - 110 mmol/L LAB CHEMISTRY METHOD 08/23/2024 12:03 PM [facility] CO2 31 21 - 32 mmol/L LAB CHEMISTRY METHOD 08/23/2024 12:03 PM [facility] Anion Gap 8 3 - 11 LAB CHEMISTRY METHOD 08/23/2024 12:03 PM [facility] Glucose 75 70 - 100 mg/dL LAB CHEMISTRY METHOD 08/23/2024 12:03 PM [facility] BUN 24 5 - 25 mg/dL LAB CHEMISTRY METHOD 08/23/2024 12:03 PM [facility] Creatinine 0.52 0.50 - 1.10 mg/dL LAB CHEMISTRY METHOD 08/23/2024 12:03 PM [facility] eGFR 107 >=60 mL/min/1. 73m2 LAB CHEMISTRY METHOD 08/23/2024 12:03 PM [facility] Comment:Calculation based on the Chronic Kidney Disease Epidemiology Collaboration (CKD-EPI) equation refit without adjustment for race. BUN/Creatinine Ratio 46.2 LAB CHEMISTRY METHOD 08/23/2024 12:03 PM [facility] Calcium 9.5 8.5 - 10.5 mg/dL LAB CHEMISTRY METHOD 08/23/2024 12:03 PM [facility] AST (SGOT) 27 10 - 42 unit/L LAB CHEMISTRY METHOD 08/23/2024 12:03 PM T [facility] ALT (SGPT) 49 10 - 60 unit/L LAB CHEMISTRY METHOD 08/23/2024 12:03 PM [facility] Alkaline Phosphatase 91 42 - 121 unit/L LAB CHEMISTRY METHOD 08/23/2024 12:03 PM [facility] Total Protein 7.1 6.0 - 8.0 g/dL LAB CHEMISTRY METHOD 08/23/2024 12:03 PM [facility] Albumin 3.6 3.2 - 5.0 g/dL LAB CHEMISTRY METHOD 08/23/2024 12:03 PM [facility] Total Bilirubin 0.7 0.0 - 1.4 mg/dL LAB CHEMISTRY METHOD 08/23/2024 12:03 PM [facility] Blood Venous blood specimen / Unknown Venipuncture / Unknown 08/23/2024 7:35 AM EDT 08/23/2024 10:27 AM EDT us Annie Carbajal MD LAB BLOOD ORDERABLES Fin al Result [facility] [address] [place] [address], * (ABNORMAL) Complete blood count (08/23/2024 7:35 AM EDT) WBC 6.6 4.8 - 10.8 K/mcL LAB HEMETOLOGY METHOD 08/23/2024 11:46 AM EDT [facility] RBC 4.80 3.80 - 4.80 M/mcL LAB HEMETOLOGY METHOD 08/23/2024 11:46 AM EDT [facility] Hemoglobin 13.7 11.5 - 16.0 g/dL LAB HEMETOLOGY METHOD 08/23/2024 11:46 AM EDT [facility] Hematocrit 43.3 35.0 - 47.0 % LAB HEMETOLOGY METHOD 08/23/2024 11:46 AM EDT [facility] MCV 89.5 79.0 - 98.0 FL LAB HEMETOLOGY METHOD 08/23/2024 11:46 AM EDT [facility] MCH 28.3 27.0 - 32.0 pcg LAB HEMETOLOGY METHOD 08/23/2024 11:46 AM EDT [facility] MCHC 31.6(L) 32.0 - 37.0 g/dL LAB HEMETOLOGY METHOD 08/23/2024 11:46 AM T [facility] RDW 13.4 11.0 - 15.0 % LAB HEMETOLOGY METHOD 08/23/2024 11:46 AM [facility] Platelets 171 130 - 400 K/mcL LAB HEMETOLOGY METHOD 08/23/2024 11:46 AM EDT [facility] MPV 12.6(H) 7.0 - 11.0 FL LAB HEMETOLOGY METHOD 08/23/2024 11:46 AM [facility] NRBC 0.0 <1.0 % LAB HEMETOLOGY METHOD 08/23/2024 11:46 AM [facility] NRBC Absolute 0.00 <0.10 K/mcL LAB HEMETOLOGY METHOD 08/23/2024 11:46 AM T [facility] Blood Venous blood specimen / Unknown Venipuncture / Unknown 08/23/2024 7:35 AM EDT 08/23/2024 10:27 AM EDT us Annie Carbajal MD LAB BLOOD ORDERABLES Fin al Result [facility] [address] [place] [address], documented in this encounter Visit Diagnoses Diagnosis Unspecified severe protein-calorie malnutrition ([facility] V24) Hemiplegia and hemiparesis following cerebral infarction affecting left non- dominant side ([facility] V24, [facility] V28) Encounter for screening for diabetes mellitus documented in this encounter Care Teams Senior Product Engineer Relationship Specialty Start Date End Date Annie Carbajal MD [address] [place] [address] PCP - General Family Medicine 04/06/24 documented as of this encounter
--- OUTSIDE RECORDS SUMMARY | 2025-02-27 22:59 | XMS_ITS | Encounter Summary ---
Author Organization [employer] Address [address] [place] [address] Care Team Providers Care Director Of Home Care Hospice Name Role Phone Annie Carbajal MD Primary Care Provider + Encounter Details Date Type Department Care Team (Late st Contact Info) Description 04/06/2024 Lab Requisition [facility] - Main Lab 299 [facility] [place] [address] Annie Carbajal MD [address] [address] Vitamin D deficiency, unspecified; Essential (primary) hypertension [...] LAB CHEMISTRY METHOD 04/06/2024 10:30 AM EST [facility] Blood Venous blood specimen / Unknown Venipuncture / Unknown 04/06/2024 7:58 AM EST 04/06/2024 8:50 AM EST Annie Carbajal MD LAB BLOOD ORDERABLES Fin al Result [facility] [address] [place] [address], * (ABNORMAL) Comprehensive metabolic panel (04/06/2024 7:58 AM EST) Sodium 140 133 - 145 mmol/L LAB CHEMISTRY METHOD 04/06/2024 10:58 AM [facility] Potassium 4.0 3.5 - 5.5 mmol/L LAB CHEMISTRY METHOD 04/06/2024 10:58 AM [facility] Chloride 104 96 - 110 mmol/L LAB CHEMISTRY METHOD 04/06/2024 10:58 AM [facility] CO2 27 21 - 32 mmol/L LAB CHEMISTRY METHOD 04/06/2024 10:58 AM [facility] Anion Gap 9 3 - 11 LAB CHEMISTRY METHOD 04/06/2024 10:58 AM [facility] Glucose 73 70 - 100 mg/dL LAB CHEMISTRY METHOD 04/06/2024 10:58 AM [facility] BUN 29(H) 5 - 25 mg/dL LAB CHEMISTRY METHOD 04/06/2024 10:58 AM [facility] Creatinine 0.53 0.50 - 1.10 mg/dL LAB CHEMISTRY METHOD 04/06/2024 10:58 AM [facility] eGFR 106 >=60 mL/min/1. 73m2 LAB CHEMISTRY METHOD 04/06/2024 10:58 AM [facility] Comment:Calculation based on the Chronic Kidney Disease Epidemiology Collaboration (CKD-EPI) equation refit without adjustment for race. BUN/Creatinine Ratio 54.7 LAB CHEMISTRY METHOD 04/06/2024 10:58 AM [facility] Calcium 9.3 8.5 - 10.5 mg/dL LAB CHEMISTRY METHOD 04/06/2024 10:58 AM [facility] AST (SGOT) 26 10 - 42 unit/L LAB CHEMISTRY METHOD 04/06/2024 10:58 AM [facility] ALT (SGPT) 42 10 - 60 unit/L LAB CHEMISTRY METHOD 04/06/2024 10:58 AM [facility] Alkaline Phosphatase 78 42 - 121 unit/L LAB CHEMISTRY METHOD 04/06/2024 10:58 AM [facility] Total Protein 6.2 6.0 - 8.0 g/dL LAB CHEMISTRY METHOD 04/06/2024 10:58 AM [facility] Albumin 3.3 3.2 - 5.0 g/dL LAB CHEMISTRY METHOD 04/06/2024 10:58 AM [facility] Total Bilirubin 0.3 0.0 - 1.4 mg/dL LAB CHEMISTRY METHOD 04/06/2024 10:58 AM [facility] Blood Venous blood specimen / Unknown Venipuncture / Unknown 04/06/2024 7:58 AM EST 04/06/2024 8:50 AM EST us Annie Carbajal MD LAB BLOOD ORDERABLES Fin al Result [facility] [address] [place] [address], * (ABNORMAL) Complete blood count (04/06/2024 7:58 AM EST) WBC 8.4 4.8 - 10.8 K/mcL LAB HEMETOLOGY METHOD 04/06/2024 9:47 AM [facility] RBC 4.40 3.80 - 4.80 M/mcL LAB HEMETOLOGY METHOD 04/06/2024 9:47 AM [facility] Hemoglobin 12.4 11.5 - 16.0 g/dL LAB HEMETOLOGY METHOD 04/06/2024 9:47 AM [facility] Hematocrit 39.7 35.0 - 47.0 % LAB HEMETOLOGY METHOD 04/06/2024 9:47 AM [facility] MCV 89.8 79.0 - 98.0 FL LAB HEMETOLOGY METHOD 04/06/2024 9:47 AM [facility] MCH 28.1 27.0 - 32.0 pcg LAB HEMETOLOGY METHOD 04/06/2024 9:47 AM [facility] MCHC 31.2(L) 32.0 - 37.0 g/dL LAB HEMETOLOGY METHOD 04/06/2024 9:47 AM [facility] RDW 13.2 11.0 - 15.0 % LAB HEMETOLOGY METHOD 04/06/2024 9:47 AM [facility] Platelets 149 130 - 400 K/mcL LAB HEMETOLOGY METHOD 04/06/2024 9:47 AM [facility] MPV 12.8(H) 7.0 - 11.0 FL LAB HEMETOLOGY METHOD 04/06/2024 9:47 AM [facility] NRBC 0.0 <1.0 % LAB HEMETOLOGY METHOD 04/06/2024 9:47 AM [facility] NRBC Absolute 0.00 <0.10 K/mcL LAB HEMETOLOGY METHOD 04/06/2024 9:47 AM [facility] Blood Venous blood specimen / Unknown Venipuncture / Unknown 04/06/2024 7:58 AM EST 04/06/2024 8:50 AM EST Annie Carbajal MD LAB BLOOD ORDERABLES Fin al Result [facility] [address] [place] [address], documented in this encounter Visit Diagnoses Diagnosis Vitamin D deficiency, unspecified Essential (primary) hypertension Unspecified essential hypertension documented in this encounter Care Teams Director Of Home Care Hospice Relationship Specialty Start Date End Date Annie Carbajal MD [address] [place] [address] PCP - General Family Medicine 04/06/24 documented as of this encounter
--- OUTSIDE RECORDS SUMMARY | 2025-02-27 22:59 | XMS_ITS | Encounter Summary ---
Author Organization [employer] Address [address] [place] [address] Care Team Providers Care Executive Vice President Name Role Phone Annie Carbajal MD Primary Care Provider + Encounter Details Date Type Department Care Team (Late st Contact Info) Description 05/30/2024 Lab Requisition [facility] - Main Lab 299 [facility] [place] [address] Annie Carbajal MD [address] [address] Essential (primary) hypertension Social History Tobacco Use [...] hypertension documented in this encounter Care Teams Executive Vice President Relationship Specialty Start Date End Date Annie Carbajal MD [address] [place] [address] PCP - General Family Medicine 04/06/24 documented as of this encounter
--- OUTSIDE RECORDS SUMMARY | 2025-02-27 22:59 | XMS_ITS | Encounter Summary ---
Author Organization [facility] Address [address] [place] [address] Care Team Providers Care Claim Rep Name Role Phone Annie Carbajal MD Primary Care Provider + Encounter Details Date Type Department Care Team (Late st Contact Info) Description 08/08/2024 Lab Requisition [facility] 299 [facility] [place] [address] Annie Carbajal MD [address] [address] Essential (primary) hypertension Social History Tobacco Use [...] LAB CHEMISTRY METHOD 08/09/2024 10:37 AM EDT [facility] Potassium 4.4 3.5 - 5.5 mmol/L LAB CHEMISTRY METHOD 08/09/2024 10:37 AM EDT [facility] Chloride 100 96 - 110 mmol/L LAB CHEMISTRY METHOD 08/09/2024 10:37 AM EDT [facility] CO2 30 21 - 32 mmol/L LAB CHEMISTRY METHOD 08/09/2024 10:37 AM EDT [facility] Anion Gap 7 3 - 11 LAB CHEMISTRY METHOD 08/09/2024 10:37 AM [facility] Glucose 76 70 - 100 mg/dL LAB CHEMISTRY METHOD 08/09/2024 10:37 AM [facility] BUN 28(H) 5 - 25 mg/dL LAB CHEMISTRY METHOD 08/09/2024 10:37 AM [facility] Creatinine 0.55 0.50 - 1.10 mg/dL LAB CHEMISTRY METHOD 08/09/2024 10:37 AM [facility] eGFR 105 >=60 mL/min/1. 73m2 LAB CHEMISTRY METHOD 08/09/2024 10:37 AM [facility] Comment:Calculation based on the Chronic Kidney Disease Epidemiology Collaboration (CKD-EPI) equation refit without adjustment for race. BUN/Creatinine Ratio 50.9 LAB CHEMISTRY METHOD 08/09/2024 10:37 AM [facility] Calcium 9.2 8.5 - 10.5 mg/dL LAB CHEMISTRY METHOD 08/09/2024 10:37 AM [facility] Blood Venous blood specimen / Unknown Venipuncture / Unknown 08/09/2024 5:03 AM EDT 08/09/2024 9:58 AM EDT us Annie Carbajal MD LAB BLOOD ORDERABLES Fin al Result [facility] [address] [place] [address], documented in this encounter Visit Diagnoses Diagnosis Essential (primary) hypertension Unspecified essential hypertension documented in this encounter Care Teams Claim Rep Relationship Specialty Start Date End Date Annie Carbajal MD [address] [address] PCP - General Family Medicine 04/06/24 documented as of this encounter
--- OUTSIDE RECORDS SUMMARY | 2025-02-27 22:59 | XMS_ITS | Encounter Summary ---
Author Organization [employer] [facility] Address [address] [place] [address] Care Team Providers Care Operators School Manager Name Role Phone Elder, Annie Nur MD Primary Care Provider + Encounter Details Date Type Department Care Team (Late st Contact Info) Description 05/18/2024 Lab Requisition [facility] - Main Lab [address] [place] [address] Jairo Valencia FNP [address] [address] Essential (primary) hypertension Social History [...] CHEMISTRY METHOD 05/18/2024 12:33 PM EST [facility] Potassium 4.7 3.5 - 5.5 mmol/L LAB CHEMISTRY METHOD 05/18/2024 12:33 PM EST [facility] Chloride 104 96 - 110 mmol/L LAB CHEMISTRY METHOD 05/18/2024 12:33 PM EST [facility] CO2 32 21 - 32 mmol/L LAB CHEMISTRY METHOD 05/18/2024 12:33 PM EST [facility] Anion Gap 6 3 - 11 LAB CHEMISTRY METHOD 05/18/2024 12:33 PM [facility] Glucose 114(H) 70 - 100 mg/dL LAB CHEMISTRY METHOD 05/18/2024 12:33 PM [facility] BUN 34(H) 5 - 25 mg/dL LAB CHEMISTRY METHOD 05/18/2024 12:33 PM [facility] Creatinine 0.62 0.50 - 1.10 mg/dL LAB CHEMISTRY METHOD 05/18/2024 12:33 PM [facility] eGFR 102 >=60 mL/min/1. 73m2 LAB CHEMISTRY METHOD 05/18/2024 12:33 PM [facility] Comment:Calculation based on the Chronic Kidney Disease Epidemiology Collaboration (CKD-EPI) equation refit without adjustment for race. BUN/Creatinine Ratio 54.8 LAB CHEMISTRY METHOD 05/18/2024 12:33 PM [facility] Calcium 9.3 8.5 - 10.5 mg/dL LAB CHEMISTRY METHOD 05/18/2024 12:33 PM [facility] AST (SGOT) 23 10 - 42 unit/L LAB CHEMISTRY METHOD 05/18/2024 12:33 PM [facility] ALT (SGPT) 41 10 - 60 unit/L LAB CHEMISTRY METHOD 05/18/2024 12:33 PM [facility] Alkaline Phosphatase 85 42 - 121 unit/L LAB CHEMISTRY METHOD 05/18/2024 12:33 PM [facility] Total Protein 6.6 6.0 - 8.0 g/dL LAB CHEMISTRY METHOD 05/18/2024 12:33 PM [facility] Albumin 3.1(L) 3.2 - 5.0 g/dL LAB CHEMISTRY METHOD 05/18/2024 12:33 PM [facility] Total Bilirubin 0.3 0.0 - 1.4 mg/dL LAB CHEMISTRY METHOD 05/18/2024 12:33 PM [facility] Blood Venous blood specimen / Unknown Venipuncture / Unknown 05/18/2024 5:15 AM EST 05/18/2024 10:44 AM EST us Jairo Valencia PLANS EXAMINER LAB BLOOD ORDERABLES Final Res ult [facility] [address] [place] [address], documented in this encounter Visit Diagnoses Diagnosis Essential (primary) hypertension Unspecified essential hypertension documented in this encounter Care Teams Operators School Manager Relationship Specialty Start Date End Date Annie Carbajal MD [address] [place] [phone] PCP - General Family Medicine 04/06/24 documented as of this encounter
--- OUTSIDE RECORDS SUMMARY | 2025-02-27 23:00 | XMS_ITS | Encounter Summary ---
Author Organization [employer] Address [address] [place] [address] Care Team Providers Care Flower Machine Operator Name Role Phone Annie Carbajal MD Primary Care Provider + Encounter Details Date Type Department Care Team (Late st Contact Info) Description 09/19/2024 Lab Requisition [facility] - Main Lab 299 [facility] [place] [address] Annie Carbajal MD [address] [address] Other senior care (current) drug therapy Social History Tobacco Use Types Packs/Day Years [...] Associated Diagnosis Comments COMPLETE BLOOD COUNT Routine 09/19/2024 9:40 AM EDT Other terminal carman (current) drug therapy COMPREHENSIVE METABOLIC PANEL Routine 09/19/2024 9:40 AM EDT Other terminal carman (current) drug therapy documented in this encounter Results * (ABNORMAL) Comprehensive metabolic panel (09/19/2024 9:40 AM EDT) Sodium 140 133 - 145 mmol/L LAB CHEMISTRY METHOD 09/19/2024 1:40 PM EDT [facility] Potassium 4.2 3.5 - 5.5 mmol/L LAB CHEMISTRY METHOD 09/19/2024 1:40 PM EDT [facility] Chloride 103 96 - 110 mmol/L LAB CHEMISTRY METHOD 09/19/2024 1:40 PM [facility] CO2 32 21 - 32 mmol/L LAB CHEMISTRY METHOD 09/19/2024 1:40 PM [facility] Anion Gap 5 3 - 11 LAB CHEMISTRY METHOD 09/19/2024 1:40 PM [facility] Glucose 70 70 - 100 mg/dL LAB CHEMISTRY METHOD 09/19/2024 1:40 PM [facility] BUN 20 5 - 25 mg/dL LAB CHEMISTRY METHOD 09/19/2024 1:40 PM [facility] Creatinine 0.56 0.50 - 1.10 mg/dL LAB CHEMISTRY METHOD 09/19/2024 1:40 PM [facility] eGFR 105 >=60 mL/min/1. 73m2 LAB CHEMISTRY METHOD 09/19/2024 1:40 PM [facility] Comment:Calculation based on the Chronic Kidney Disease Epidemiology Collaboration (CKD-EPI) equation refit without adjustment for race. BUN/Creatinine Ratio 35.7 LAB CHEMISTRY METHOD 09/19/2024 1:40 PM [facility] Calcium 9.0 8.5 - 10.5 mg/dL LAB CHEMISTRY METHOD 09/19/2024 1:40 PM [facility] AST (SGOT) 23 10 - 42 unit/L LAB CHEMISTRY METHOD 09/19/2024 1:40 PM [facility] ALT (SGPT) 44 10 - 60 unit/L LAB CHEMISTRY METHOD 09/19/2024 1:40 PM [facility] Alkaline Phosphatase 117 42 - 121 unit/L LAB CHEMISTRY METHOD 09/19/2024 1:40 PM [facility] Total Protein 6.2 6.0 - 8.0 g/dL LAB CHEMISTRY METHOD 09/19/2024 1:40 PM [facility] Albumin 3.1(L) 3.2 - 5.0 g/dL LAB CHEMISTRY METHOD 09/19/2024 1:40 PM EDT [facility] Total Bilirubin 0.3 0.0 - 1.4 mg/dL LAB CHEMISTRY METHOD 09/19/2024 1:40 PM EDT [facility] Blood Venous blood specimen / Unknown Venipuncture / Unknown 09/19/2024 9:40 AM EDT 09/19/2024 11:50 AM EDT us Annie Carbajal MD LAB BLOOD ORDERABLES Fin al Result [facility] [address] [place] [address], * (ABNORMAL) Complete blood count (09/19/2024 9:40 AM EDT) WBC 6.4 4.8 - 10.8 K/mcL LAB HEMETOLOGY [facility] RBC 4.80 3.80 - 4.80 M/mcL LAB HEMETOLOGY METHOD 09/19[facility]2024 [facility] Hemoglobin 13.5 11.5 - 16.0 g/dL LAB HEMETOLOGY METHOD 09/19[facility]2024 [facility] Hematocrit 43.0 35.0 - 47.0 % LAB HEMETOLOGY METHOD 09/19/2024 1:06 PM EDT [facility] MCV 90.0 79.0 - 98.0 FL LAB HEMETOLOGY METHOD 09/19/2024 1:06 PM EDT [facility] MCH 28.2 27.0 - 32.0 pcg LAB HEMETOLOGY METHOD 09/19/2024 [facility] MCHC 31.4(L) 32.0 - 37.0 g/dL LAB HEMETOLOGY METHOD 09/19/2024 1:06 PM EDT [facility] RDW 13.1 11.0 - 15.0 % LAB HEMETOLOGY METHOD 09/19/2024 1:06 PM EDT [facility] Platelets 144 130 - 400 K/mcL LAB HEMETOLOGY METHOD 09/19/2024 1:06 PM EDT [facility] MPV 13.0(H) 7.0 - 11.0 FL LAB HEMETOLOGY METHOD 09/19/2024 1:06 PM EDT [facility] NRBC 0.0 <1.0 % LAB HEMETOLOGY METHOD 09/19/2024 1:06 PM EDT [facility] NRBC Absolute 0.00 <0.10 K/mcL LAB HEMETOLOGY METHOD 09/19/2024 1:06 PM EDT [facility] Blood Venous blood specimen / Unknown Venipuncture / Unknown 09/19/2024 9:40 AM EDT 09/19/2024 11:50 AM EDT us Annie Carbajal MD LAB BLOOD ORDERABLES Fin al Result [facility] [address] [place] [address], documented in this encounter Visit Diagnoses Diagnosis Other senior care (current) drug therapy documented in this encounter Care Teams Flower Machine Operator Relationship Specialty Start Date End Date Annie Carbajal MD [address] [place] [id number] PCP - General Family Medicine 04/06/24 documented as of this encounter
--- OUTSIDE RECORDS SUMMARY | 2025-02-27 23:00 | XMS_ITS | Encounter Summary ---
Author Organization [facility] Address [address] [place] [address] Care Team Providers Care Senior Copywriter Name Role Phone Annie Carbajal MD Primary Care Provider + Encounter Details Date Type Department Care Team (Late st Contact Info) Description 10/11/[address] [facility] - Main Lab 299 [facility] [place] [address] Annie Carbajal MD [address] [address] Fever, unspecified; Cough, unspecified; Other fatigue Social History Tobacco Use Types Packs/Day Years [...] Procedure Name Priority Date/Time Associated Diagnosis Comments CULTURE BLOOD STAT 10/11/2024 11:22 AM EDT Fever, unspecified Cough, unspecified Other fatigue documented in this encounter Results * Culture blood (10/11/2024 11:22 AM EDT) Culture, Blood No growth at 5 days LAB MICROBIOLOGY METHOD 10/16/2024 1:01 PM EDT [facility] Blood 10/11/2024 11:2 2 AM EDT 10/11/2024 12:14 PM EDT us Annie Carbajal MD LAB MICROBIOLOGY - GENER AL ORDERABLES Final Result [facility] [address] [place] [address], documented in this encounter Visit Diagnoses Diagnosis Fever, unspecified Cough, unspecified Other fatigue documented in this encounter Care Teams Senior Copywriter Relationship Specialty Start Date End Date Annie Carbajal MD [address] [address] PCP - General Family Medicine 04/06/24 documented as of this encounter
--- OUTSIDE RECORDS SUMMARY | 2025-02-27 23:00 | XMS_ITS | Encounter Summary ---
Author Organization [facility] Address [address] [place] [address] Care Team Providers Care Tanbark Laborer Name Role Phone Annie Carbajal MD Primary Care Provider + Encounter Details Date Type Department Care Team (Late st Contact Info) Description 10/11/2024 Lab Requisition [facility] - Main Lab 299 [facility] [place] [address] Annie Carbajal MD 8[address] [facility] 1 [place] [address] Fever, unspecified; Cough, unspecified; Other fatigue Social [...] Procedure Name Priority Date/Time Associated Diagnosis Comments CBC WITH AUTO DIFFERENTIAL STAT 10/11/2024 11:14 AM EDT Fever, unspecified Cough, unspecified Other fatigue CULTURE BLOOD STAT 10/11/2024 11:14 AM EDT Fever, unspecified Cough, unspecified Other fatigue CBC AND DIFFERENTIAL Routine 10/11/2024 11:14 AM EDT Fever, unspecified Cough, unspecified Other fatigue COMPREHENSIVE METABOLIC PANEL STAT 10/11/2024 11:14 AM EDT Fever, unspecified Cough, unspecified Other fatigue documented in this encounter Results * (ABNORMAL) CBC auto differential (10/11/2024 11:14 AM EDT) WBC 9.8 4.8 - 10.8 K/mcL LAB [facility]EMETOLOGY [facility] RBC 4.60 3.80 - 4.80 M/mcL LAB HEMETOLOGY METHOD 10/11/2024 12:38 PM [facility] LAB Hemoglobin 12.9 11.5 - 16.0 g/dL LAB HEMETOLOGY METHOD 10/11/2024 12:38 PM [facility] LAB Hematocrit 41.0 35.0 - 47.0 % LAB HEMETOLOGY METHOD 10/11/2024 12:38 PM [facility] LAB MCV 89.5 79.0 - 98.0 FL LAB HEMETOLOGY METHOD 10/11/2024 12:38 PM [facility] LAB MCH 28.2 27.0 - 32.0 pcg LAB HEMETOLOGY METHOD 10/11/2024 12:38 PM [facility] LAB MCHC 31.5(L) 32.0 - 37.0 g/dL LAB HEMETOLOGY METHOD 10/11/2024 12:38 PM [facility] RDW 13.2 11.0 - 15.0 % LAB HEMETOLOGY METHOD 10/11/2024 12:38 PM [facility] Platelets 155 130 - 400 K/mcL LAB HEMETOLOGY METHOD 10/11/2024 12:38 PM [facility] LAB MPV 12.7(H) 7.0 - 11.0 FL LAB HEMETOLOGY METHOD 10/11/2024 12:38 PM [facility] NRBC 0.0 <1.0 % LAB HEMETOLOGY METHOD 10/11/2024 12:38 PM [facility] LAB NRBC Absolute 0.00 <0.10 K/mcL LAB HEMETOLOGY METHOD 10/11/2024 12:38 PM [facility] Neutrophils Relative 80.0 % LAB HEMETOLOGY METHOD 10/11/2024 12:38 PM [facility] Lymphocytes Relative 13.3 % LAB HEMETOLOGY METHOD 10/11/2024 12:38 PM [facility] Monocytes Relative 5.4 % LAB HEMETOLOGY METHOD 10/11/2024 12:38 PM [facility] Eosinophils Relative 0.6 % LAB HEMETOLOGY METHOD 10/11/2024 12:38 PM [facility] Basophils Relative 0.3 % LAB HEMETOLOGY METHOD 10/11/2024 12:38 PM [facility] Immature Granulocytes Relative 0.4 % LAB HEMETOLOGY METHOD 10/11/2024 12:38 PM [facility] Neutrophils Absolute 7.81(H) 1.50 - 7.00 K/mcL LAB HEMETOLOGY METHOD 10/11/2024 12:38 PM [facility] Lymphocytes Absolute 1.30 1.00 - 5.00 K/mcL LAB HEMETOLOGY METHOD 10/11/2024 12:38 PM [facility] Monocytes Absolute 0.53 0.20 - 1.00 K/mcL LAB HEMETOLOGY METHOD 10/11/2024 12:38 PM [facility] Eosinophils Absolute 0.06 0.00 - 0.50 K/mcL LAB HEMETOLOGY METHOD 10/11/2024 12:38 PM [facility] Basophils Absolute 0.03 0.00 - 0.20 K/mcL LAB HEMETOLOGY METHOD 10/11/2024 12:38 PM [facility] Immature Granulocytes Absolute 0.04(H) 0.00 - 0.03 K/mcL LAB HEMETOLOGY METHOD 10/11/2024 12:38 PM [facility] Blood Venous blood specimen / Unknown Venipuncture / Unknown 10/11/2024 11:14 AM EDT 10/11/2024 12:12 PM EDT Annie Carbajal MD LAB BLOOD ORDERABLES Fin al Result Performing Organization Address [facility]/ZIP Co de Phone Number [facility] [address] [place] [address], [place] [phone] * Culture blood (10/11/2024 11:14 AM EDT) Pathologist [facility] Culture, Blood No growth at 5 days LAB MICROBIOLOGY METHOD 10/16/2024 1:01 PM EDT [facility] Blood Venipuncture / Unknown 10/11/2024 11:14 AM EDT 10/11/2024 12:12 PM EDT Annie Carbajal MD LAB MICROBIOLOGY - GENER AL ORDERABLES Final Result Performing Organization Address [facility] Co de Phone Number [facility] [address] [place] [address], [place] [phone] * (ABNORMAL) Comprehensive metabolic panel (10/11/2024 11:14 AM EDT) [facility] Sodium 140 133 - 145 mmol/L LAB CHEMISTRY METHOD 10/11/2024 2:07 PM T [facility] Potassium 3.8 3.5 - 5.5 mmol/L LAB CHEMISTRY METHOD 10/11/2024 2:07 PM EDT [facility] Chloride 105 96 - 110 mmol/L LAB CHEMISTRY METHOD 10/11/2024 2:07 PM EDT [facility] CO2 27 21 - 32 mmol/L LAB CHEMISTRY METHOD 10/11/2024 2:07 PM EDT [facility] Anion Gap 8 3 - 11 LAB CHEMISTRY METHOD 10/11/2024 2:07 PM EDT [facility] Glucose 218(H) 70 - 100 mg/dL LAB CHEMISTRY METHOD 10/11/2024 2:07 PM [facility] BUN 26(H) 5 - 25 mg/dL LAB CHEMISTRY METHOD 10/11/2024 2:07 PM [facility] Creatinine 0.79 0.50 - 1.10 mg/dL LAB CHEMISTRY METHOD 10/11/2024 2:07 PM [facility] eGFR 86 >=60 mL/min/1. 73m2 LAB CHEMISTRY METHOD 10/11/2024 2:07 PM [facility] Comment:Calculation based on the Chronic Kidney Disease Epidemiology Collaboration (CKD-EPI) equation refit without adjustment for race. BUN/Creatinine Ratio 32.9 LAB CHEMISTRY METHOD 10/11/2024 2:07 PM [facility] Calcium 9.0 8.5 - 10.5 mg/dL LAB CHEMISTRY METHOD 10/11/2024 2:07 PM [facility] AST (SGOT) 26 10 - 42 unit/L LAB CHEMISTRY METHOD 10/11/2024 2:07 PM [facility] ALT (SGPT) 26 10 - 60 unit/L LAB CHEMISTRY METHOD 10/11/2024 2:07 PM [facility] Alkaline Phosphatase 109 42 - 121 unit/L LAB CHEMISTRY METHOD 10/11/2024 2:07 PM [facility] Total Protein 6.4 6.0 - 8.0 g/dL LAB CHEMISTRY METHOD 10/11/2024 2:07 PM [facility] Albumin 2.9(L) 3.2 - 5.0 g/dL LAB CHEMISTRY METHOD 10/11/2024 2:07 PM [facility] Total Bilirubin 0.5 0.0 - 1.4 mg/dL LAB CHEMISTRY METHOD 10/11/2024 2:07 PM [facility] Blood Venous blood specimen / Unknown Venipuncture / Unknown 10/11/2024 11:14 AM EDT 10/11/2024 12:12 PM EDT us Annie Carbajal MD LAB BLOOD ORDERABLES Fin al Result [facility] ([facility]) [facility] [address] [place] [address], documented in this encounter Visit Diagnoses Diagnosis Fever, unspecified Cough, unspecified Other fatigue documented in this encounter Care Teams Tanbark Laborer Relationship Specialty Start Date End Date Annie Carbajal MD [address] [address] PCP - General Family Medicine 04/06/24 documented as of this encounter
--- OUTSIDE RECORDS SUMMARY | 2025-02-27 23:00 | XMS_ITS | Encounter Summary ---
Author Organization [facility] Address [address] [place] [address] Care Team Providers Care Refinery Operator Polymerization Plant Name Role Phone Annie Carbajal MD Primary Care Provider + Encounter Details Date Type Department Care Team (Late st Contact Info) Description 11/04/2024 Lab Requisition [facility] - Main Lab 299 [facility] [place] [address] Annie Carbajal MD [address] [address] Adult failure to thrive Social History Tobacco Use Types Packs/Day Years [...] Diagnosis Comments CBC WITH AUTO DIFFERENTIAL STAT 11/04/2024 7:16 AM EDT Adult failure to thrive CBC AND DIFFERENTIAL STAT 11/04/2024 7:16 AM EDT Adult failure to thrive BASIC METABOLIC PANEL STAT 11/04/2024 7:16 AM EDT Adult failure to thrive documented in this encounter Results * (ABNORMAL) CBC auto differential (11/04/2024 7:16 AM EDT) WBC 9.2 4.8 - 10.8 K/[facility] LAB HEMETOLOGY METHOD 11/04/2024 11:22 AM EDT [facility] ([facility]) [facility] LAB RBC 4.90(H) 3.80 - 4.80 M/mcL LAB HEMETOLOGY METHOD 11/04/2024 11:22 AM [facility] Hemoglobin 13.5 11.5 - 16.0 g/dL LAB HEMETOLOGY METHOD 11/04/2024 11:22 AM [facility] Hematocrit 43.7 35.0 - 47.0 % LAB HEMETOLOGY METHOD 11/04/2024 11:22 AM [facility] MCV 89.0 79.0 - 98.0 FL LAB HEMETOLOGY METHOD 11/04/2024 11:22 AM [facility] LAB MCH 27.5 27.0 - 32.0 pcg LAB HEMETOLOGY METHOD 11/04/2024 11:22 AM [facility] LAB MCHC 30.9(L) 32.0 - 37.0 g/dL LAB HEMETOLOGY METHOD 11/04/2024 11:22 AM [facility] RDW 13.4 11.0 - 15.0 % LAB HEMETOLOGY METHOD 11/04/2024 11:22 AM [facility] Platelets 160 130 - 400 K/mcL LAB HEMETOLOGY METHOD 11/04/2024 11:22 AM [facility] MPV 13.1(H) 7.0 - 11.0 FL LAB HEMETOLOGY METHOD 11/04/2024 11:22 AM [facility] NRBC 0.0 <1.0 % LAB HEMETOLOGY METHOD 11/04/2024 11:22 AM [facility] NRBC Absolute 0.00 <0.10 K/mcL LAB HEMETOLOGY METHOD 11/04/2024 11:22 AM [facility] Neutrophils Relative 65.3 % LAB HEMETOLOGY METHOD 11/04/2024 11:22 AM [facility] Lymphocytes Relative 24.2 % LAB HEMETOLOGY METHOD 11/04/2024 11:22 AM [facility] Monocytes Relative 8.1 % LAB HEMETOLOGY METHOD 11/04/2024 11:22 AM [facility] Eosinophils Relative 1.5 % LAB HEMETOLOGY METHOD 11/04/2024 11:22 AM [facility] Basophils Relative 0.4 % LAB HEMETOLOGY METHOD 11/04/2024 11:22 AM [facility] Immature Granulocytes Relative 0.5 % LAB HEMETOLOGY METHOD 11/04/2024 11:22 AM [facility] Neutrophils Absolute 5.98 1.50 - 7.00 K/mcL LAB HEMETOLOGY METHOD 11/04/2024 11:22 AM [facility] Lymphocytes Absolute 2.22 1.00 - 5.00 K/mcL LAB HEMETOLOGY METHOD 11/04/2024 11:22 AM [facility] Monocytes Absolute 0.74 0.20 - 1.00 K/mcL LAB HEMETOLOGY METHOD 11/04/2024 11:22 AM [facility] Eosinophils Absolute 0.14 0.00 - 0.50 K/mcL LAB HEMETOLOGY METHOD 11/04/2024 11:22 AM [facility] Basophils Absolute 0.04 0.00 - 0.20 K/mcL LAB HEMETOLOGY METHOD 11/04/2024 11:22 AM [facility] Immature Granulocytes Absolute 0.05(H) 0.00 - 0.03 K/mcL LAB HEMETOLOGY METHOD 11/04/2024 11:22 AM [facility] Blood Venous blood specimen / Unknown Venipuncture / Unknown 11/04/2024 7:16 AM EDT 11/04/2024 10:17 AM EDT Annie Carbajal MD LAB BLOOD ORDERABLES Fin al Result [facility] [address] [place] [address], * (ABNORMAL) Basic metabolic panel (11/04/2024 7:16 AM EDT) Sodium 138 133 - 145 mmol/L LAB CHEMISTRY METHOD 11/04/2024 11:15 AM [facility] Potassium 3.2(L) 3.5 - 5.5 mmol/L LAB CHEMISTRY METHOD 11/04/2024 11:15 AM [facility] Chloride 96 96 - 110 mmol/L LAB CHEMISTRY METHOD 11/04/2024 11:15 AM [facility] CO2 34(H) 21 - 32 mmol/L LAB CHEMISTRY METHOD 11/04/2024 11:15 AM [facility] Anion Gap 8 3 - 11 LAB CHEMISTRY METHOD 11/04/2024 11:15 AM [facility] Glucose 83 70 - 100 mg/dL LAB CHEMISTRY METHOD 11/04/2024 11:15 AM [facility] BUN 25 5 - 25 mg/dL LAB CHEMISTRY METHOD 11/04/2024 11:15 AM [facility] Creatinine 0.63 0.50 - 1.10 mg/dL LAB CHEMISTRY METHOD 11/04/2024 11:15 AM [facility] LAB eGFR 102 >=60 mL/min/1. 73m2 LAB CHEMISTRY METHOD 11/04/2024 11:15 AM [facility] LAB Comment:Calculation based on the Chronic Kidney Disease Epidemiology Collaboration (CKD-EPI) equation refit without adjustment for race. BUN/Creatinine Ratio 39.7 LAB CHEMISTRY METHOD 11/04/2024 11:15 AM [facility] Calcium 9.2 8.5 - 10.5 mg/dL LAB CHEMISTRY METHOD 11/04/2024 11:15 AM [facility] Blood Venous blood specimen / Unknown Venipuncture / Unknown 11/04/2024 7:16 AM EDT 11/04/2024 10:17 AM EDT Annie Carbajal MD LAB BLOOD ORDERABLES Fin al Result Performing Organization Address City/State/[facility] Co de Phone Number [facility] ([facility]) [facility] [address] [place] [address], documented in this encounter Visit Diagnoses Diagnosis Adult failure to thrive documented in this encounter Care Teams Refinery Operator Polymerization Plant Relationship Specialty Start Date End Date Annie Carbajal MD [address] [place] [address] PCP - General Family Medicine 04/06/24 documented as of this encounter
--- OUTSIDE RECORDS SUMMARY | 2025-02-27 23:00 | XMS_ITS | Encounter Summary ---
Author Organization [employer] Address [address] [place] [address] Care Team Providers Care Weigher Production Name Role Phone Annie Carbajal MD Primary Care Provider + Encounter Details Date Type Department Care Team (Late st Contact Info) Description 10/14/2024 Lab Requisition [facility] - Main Lab [address] [facility] [place] [place] [address] Annie Carbajal MD [address] [address] Gastrostomy status (CMS/HCC V24, CMS/HCC V28); Dysphagia, unspecified; Other stretcher leveler operator helper (current) drug therapy Social History Tobacco Use [...] Associated Diagnosis Comments COMPLETE BLOOD COUNT Routine 10/15/2024 7:39 AM EDT Gastrostomy status (CMS/HCC V24, CMS/HCC V28) Dysphagia, unspecified Other stretcher leveler operator helper (current) drug therapy COMPREHENSIVE METABOLIC PANEL Routine 10/15/2024 7:39 AM EDT Gastrostomy status (CMS/HCC V24, CMS/HCC V28) Dysphagia, unspecified Other stretcher leveler operator helper (current) drug therapy documented in this encounter Results * (ABNORMAL) Comprehensive metabolic panel (10/15/2024 7:39 AM EDT) Sodium 137 133 - 145 mmol/L LAB CHEMISTRY METHOD 10/15/2024 11:54 AM [facility] Potassium 3.7 3.5 - 5.5 mmol/L LAB CHEMISTRY METHOD 10/15/2024 11:54 AM [facility] LAB Chloride 103 96 - 110 mmol/L LAB CHEMISTRY METHOD 10/15/2024 11:54 AM [facility] LAB CO2 26 21 - 32 mmol/L LAB CHEMISTRY METHOD 10/15/2024 11:54 AM [facility] LAB Anion Gap 8 3 - 11 LAB CHEMISTRY METHOD 10/15/2024 11:54 AM [facility] LAB Glucose 75 70 - 100 mg/dL LAB CHEMISTRY METHOD 10/15/2024 11:54 AM [facility] BUN 22 5 - 25 mg/dL LAB CHEMISTRY METHOD 10/15/2024 11:54 AM [facility] LAB Creatinine 0.42(L) 0.50 - 1.10 mg/dL LAB CHEMISTRY METHOD 10/15/2024 11:54 AM [facility] LAB eGFR 112 >=60 mL/min/1. 73m2 LAB CHEMISTRY METHOD 10/15/2024 11:54 AM [facility] LAB Comment:Calculation based on the Chronic Kidney Disease Epidemiology Collaboration (CKD-EPI) equation refit without adjustment for race. BUN/Creatinine Ratio 52.4 LAB CHEMISTRY METHOD 10/15/2024 11:54 AM [facility] LAB Calcium 9.0 8.5 - 10.5 mg/dL LAB CHEMISTRY METHOD 10/15/2024 11:54 AM [facility] LAB AST (SGOT) 21 10 - 42 unit/L LAB CHEMISTRY METHOD 10/15/2024 11:54 AM [facility] ALT (SGPT) 28 10 - 60 unit/L LAB CHEMISTRY METHOD 10/15/2024 11:54 AM [facility] LAB Alkaline Phosphatase 106 42 - 121 unit/L LAB CHEMISTRY METHOD 10/15/2024 11:54 AM EDT [facility] Total Protein 6.5 6.0 - 8.0 g/dL LAB CHEMISTRY METHOD 10/15/2024 11:54 AM [facility] Albumin 2.7(L) 3.2 - 5.0 g/dL LAB CHEMISTRY METHOD 10/15/2024 11:54 AM [facility] Total Bilirubin 0.6 0.0 - 1.4 mg/dL LAB CHEMISTRY METHOD 10/15/2024 11:54 AM EDT [facility] Blood Venous blood specimen / Unknown Venipuncture / Unknown 10/15/2024 7:39 AM EDT 10/15/2024 10:28 AM EDT us Annie Carbajal MD LAB BLOOD ORDERABLES Fin al Result [facility] [address] [place] [address], * (ABNORMAL) Complete blood count (10/15/2024 7:39 AM EDT) WBC 14.7(H) 4.8 - 10.8 K/mcL LAB HEMETOLOGY METHOD 10/15/2024 10:52 AM [facility] RBC 4.00 3.80 - 4.80 M/mcL LAB HEMETOLOGY METHOD 10/15/2024 10:52 AM T [facility] Hemoglobin 11.3(L) 11.5 - 16.0 g/dL LAB HEMETOLOGY METHOD 10/15/2024 10:52 AM [facility] Hematocrit 35.3 35.0 - 47.0 % LAB HEMETOLOGY METHOD 10/15/2024 10:52 AM [facility] LAB MCV 88.0 79.0 - 98.0 FL LAB HEMETOLOGY METHOD 10/15/2024 10:52 AM [facility] LAB MCH 28.2 27.0 - 32.0 pcg LAB HEMETOLOGY METHOD 10/15/2024 10:52 AM EDT [facility] MCHC 32.0 32.0 - 37.0 g/dL LAB HEMETOLOGY METHOD 10/15/2024 10:52 AM EDT [facility] RDW 12.9 11.0 - 15.0 % LAB HEMETOLOGY METHOD 10/15/2024 10:52 AM EDT [facility] Platelets 178 130 - 400 K/mcL LAB HEMETOLOGY METHOD 10/15/2024 10:52 AM EDT [facility] MPV 12.3(H) 7.0 - 11.0 FL LAB HEMETOLOGY METHOD 10/15/2024 10:52 AM EDT [facility] NRBC 0.0 <1.0 % LAB HEMETOLOGY METHOD 10/15/2024 10:52 AM EDT [facility] NRBC Absolute 0.00 <0.10 K/mcL LAB HEMETOLOGY METHOD 10/15/2024 10:52 AM EDT [facility] Blood Venous blood specimen / Unknown Venipuncture / Unknown 10/15/2024 7:39 AM EDT 10/15/2024 10:19 AM EDT us Annie Carbajal MD LAB BLOOD ORDERABLES Fin al Result [facility] [address] [place] [address], documented in this encounter Visit Diagnoses Diagnosis Gastrostomy status (CMS/HCC V24, CMS/HCC V28) Gastrostomy status Dysphagia, unspecified Other stretcher leveler operator helper (current) drug therapy documented in this encounter Care Teams Weigher Production Relationship Specialty Start Date End Date Annie Carbajal MD [address] [place] [address] PCP - General Family Medicine 04/06/24 documented as of this encounter
--- OUTSIDE RECORDS SUMMARY | 2025-02-27 23:00 | XMS_ITS | Encounter Summary ---
Author Organization [employer] Address [address] [place] [address] Care Team Providers Care Wildlife Protector Name Role Phone Annie Carbajal MD Primary Care Provider + Encounter Details Date Type Department Care Team (Late st Contact Info) Description 10/26/2024 Lab Requisition [facility] - Main Lab [address] [facility] [place] [address] Annie Carbajal MD [address] [address] Unspecified convulsions (CMS/HCC V24, CMS/HCC V28) Social History Tobacco [...] Associated Diagnosis Comments COMPLETE BLOOD COUNT Routine 10/26/2024 5:00 AM EDT Unspecified convulsions (CMS/HCC V24, CMS/HCC V28) VALPROIC ACID LEVEL, TOTAL Routine 10/26/2024 5:00 AM EDT Unspecified convulsions (CMS/HCC V24, CMS/HCC V28) COMPREHENSIVE METABOLIC PANEL Routine 10/26/2024 5:00 AM EDT Unspecified convulsions (CMS/HCC V24, CMS/HCC V28) documented in this encounter Results * (ABNORMAL) Valproic acid level, total (10/26/2024 5:00 AM EDT) Valproic Acid, Total 21(L) 50 - 100 mcg/mL LAB CHEMISTRY METHOD 10/26/2024 11:[address] [facility] Blood Venous blood specimen / Unknown Venipuncture / Unknown 10/26/2024 5:00 AM EDT 10/26/2024 9:53 AM EDT us Annie Carbajal MD LAB BLOOD ORDERABLES Fin al Result [facility] [address] [place] [address], [place] [phone] * (ABNORMAL) Comprehensive metabolic panel (10/26/2024 5:00 AM EDT) Sodium 141 133 - 145 mmol/L LAB CHEMISTRY METHOD 10/26/2024 11:[address] [facility] Potassium 4.4 3.5 - 5.5 mmol/L LAB CHEMISTRY METHOD 10/26/2024 11:[address] [facility] Chloride 104 96 - 110 mmol/L LAB CHEMISTRY METHOD 10/26/2024 11:[address] [facility] CO2 30 21 - 32 mmol/L LAB CHEMISTRY METHOD 10/26/2024 11:[address] [facility] Anion Gap 7 3 - 11 LAB CHEMISTRY METHOD 10/26/2024 11:[address] [facility] Glucose 51(L) 70 - 100 mg/dL LAB CHEMISTRY METHOD 10/26/2024 11:[address] [facility] BUN 20 5 - 25 mg/dL LAB CHEMISTRY METHOD 10/26/2024 11:[address] [facility] Creatinine 0.54 0.50 - 1.10 mg/dL LAB CHEMISTRY METHOD 10/26/2024 11:[address] [facility] eGFR 106 >=60 mL/min/1. 73m2 LAB CHE[facility]STR[facility] Comment:Calculation based on the Chronic Kidney Disease Epidemiology Collaboration (CKD-EPI) equation refit without adjustment for race. BUN/Creatinine Ratio 37.0 LAB CHEMISTRY METHOD 10/26/2024 11:[address] [facility] Calcium 8.4(L) 8.5 - 10.5 mg/dL LAB CHEMISTRY METHOD 10/26/2024 11:[address] [facility] AST (SGOT) 32 10 - 42 unit/L LAB CHEMISTRY METHOD 10/26/2024 11:[address] [facility] ALT (SGPT) 43 10 - 60 unit/L LAB CHEMISTRY METHOD 10/26/2024 11:[address] [facility] Alkaline Phosphatase 113 42 - 121 unit/L LAB CHEMISTRY METHOD 10/26/2024 11:[address] [facility] Total Protein 6.0 6.0 - 8.0 g/dL LAB CHEMISTRY METHOD 10/26/2024 11:[address] [facility] Albumin 2.7(L) 3.2 - 5.0 g/dL LAB CHEMISTRY METHOD 10/26/2024 11:[address] [facility] Total Bilirubin 0.2 0.0 - 1.4 mg/dL LAB CHEMISTRY METHOD 10/26/2024 11:[address] [facility] Blood Venous blood specimen / Unknown Venipuncture / Unknown 10/26/2024 5:00 AM EDT 10/26/2024 9:53 AM EDT us Annie Carbajal MD LAB BLOOD ORDERABLES Fin al Result [facility] [address] [place] [address], * (ABNORMAL) Complete blood count (10/26/2024 5:00 AM EDT) WBC 9.3 4.8 - 10.8 K/mcL LAB HEMETOLOGY METHOD 10/26/2024 10:[address] [facility] RBC 4.20 3.80 - 4.80 M/mcL LAB HEMETOLOGY METHOD 10/26/2024 10:[address] [facility] Hemoglobin 11.7 11.5 - 16.0 g/dL LAB HEMETOLOGY METHOD 10/26/2024 10:[address] [facility] Hematocrit 38.1 35.0 - 47.0 % LAB HEMETOLOGY METHOD 10/26/2024 10:[address] [facility] MCV 89.9 79.0 - 98.0 FL LAB HEMETOLOGY METHOD 10/26/2024 10:[address] [facility] MCH 27.6 27.0 - 32.0 pcg LAB HEMETOLOGY METHOD 10/26/2024 10:[address] [facility] MCHC 30.7(L) 32.0 - 37.0 g/dL LAB HEMETOLOGY METHOD 10/26/2024 10:[address] [facility] RDW 13.2 11.0 - 15.0 % LAB HEMETOLOGY METHOD 10/26/2024 10:[address] [facility] Platelets 400 130 - 400 K/mcL LAB HEMETOLOGY METHOD 10/26/2024 10:[address] [facility] MPV 11.0 7.0 - 11.0 FL LAB HEMETOLOGY METHOD 10/26/2024 10:[address] [facility] NRBC 0.0 <1.0 % LAB HEMETOLOGY METHOD 10/26/2024 10:[address] [facility] NRBC Absolute 0.00 <0.10 K/mcL LAB HEMETOLOGY METHOD 10/26/2024 10:[address] [facility] Blood Venous blood specimen / Unknown Venipuncture / Unknown 10/26/2024 5:00 AM EDT 10/26/2024 9:53 AM EDT Annie Carbajal MD LAB BLOOD ORDERABLES Fin al Result [facility] ([facility] [address] [place] [address], documented in this encounter Visit Diagnoses Diagnosis Unspecified convulsions (CMS/HCC V24, CMS/HCC V28) documented in this encounter Care Teams Wildlife Protector Relationship Specialty Start Date End Date Annie Carbajal MD [address] [place] [id number] PCP - General Family Medicine 04/06/24 documented as of this encounter
--- OUTSIDE RECORDS SUMMARY | 2025-02-27 23:00 | XMS_ITS | Encounter Summary ---
Author Organization [employer] Address [address] [place] [address] Care Team Providers Care Rec Therapist Name Role Phone Annie Carbajal MD Primary Care Provider + Encounter Details Date Type Department Care Team (Late st Contact Info) Description 10/17/2024 Lab Requisition [facility] - Main Lab [address] [facility] [place] [address] Annie Carbajal MD [address] [address] Essential (primary) hypertension Social History Tobacco Use [...] Associated Diagnosis Comments CBC WITH AUTO DIFFERENTIAL Routine 10/17/2024 6:22 AM EDT Essential (primary) hypertension CBC AND DIFFERENTIAL Routine 10/17/2024 6:22 AM EDT Essential (primary) hypertension documented in this encounter Results * (ABNORMAL) CBC auto differential (10/17/2024 6:22 AM EDT) WBC 8.5 4.8 - 10.8 K/[facility] LAB HEMETOLOGY METHOD 10/17/2024 10:14 AM EDT [facility] RBC 3.90 3.80 - 4.80 M/[facility] LAB HEMETOLOGY METHOD 10/17/2024 10:14 AM EDT [facility] Hemoglobin 11.0(L) 11.5 - 16.0 g/dL LAB HEMETOLOGY METHOD 10/17/2024 10:14 AM [facility] Hematocrit 36.6 35.0 - 47.0 % LAB HEMETOLOGY METHOD 10/17/2024 10:14 AM [facility] MCV 93.8 79.0 - 98.0 FL LAB HEMETOLOGY METHOD 10/17/2024 10:14 AM [facility] MCH 28.2 27.0 - 32.0 pcg LAB HEMETOLOGY METHOD 10/17/2024 10:14 AM [facility] MCHC 30.1(L) 32.0 - 37.0 g/dL LAB HEMETOLOGY METHOD 10/17/2024 10:14 AM [facility] RDW 13.0 11.0 - 15.0 % LAB HEMETOLOGY METHOD 10/17/2024 10:14 AM [facility] Platelets 215 130 - 400 K/mcL LAB HEMETOLOGY METHOD 10/17/2024 10:14 AM [facility] MPV 11.9(H) 7.0 - 11.0 FL LAB HEMETOLOGY METHOD 10/17/2024 10:14 AM [facility] NRBC 0.2 <1.0 % LAB HEMETOLOGY METHOD 10/17/2024 10:14 AM [facility] NRBC Absolute 0.02 <0.10 K/mcL LAB HEMETOLOGY METHOD 10/17/2024 10:14 AM [facility] Neutrophils Relative 56.0 % LAB HEMETOLOGY METHOD 10/17/2024 10:14 AM [facility] Lymphocytes Relative 34.0 % LAB HEMETOLOGY METHOD 10/17/2024 10:14 AM [facility] Monocytes Relative 7.4 % LAB HEMETOLOGY METHOD 10/17/2024 10:14 AM EDT [facility] Eosinophils Relative 1.2 % LAB HEMETOLOGY METHOD 10/17/2024 10:14 AM EDT [facility] Basophils Relative 0.6 % LAB [facility]EMETOLOGY METHOD [facility]24 [facility] Immature Granulocytes Relative 0.8 % LAB HEMETOLOGY METHOD 10/17/2024 10:14 AM EDT [facility] Neutrophils Absolute 4.77 1.50 - 7.00 K/mcL LAB HEMETOLOGY METHOD 10/17/2024 10:14 AM EDT [facility] Lymphocytes Absolute 2.90 1.00 - 5.00 K/mcL LAB HEMETOLOGY METHOD 10/17/2024 10:14 AM [facility] Monocytes Absolute 0.63 0.20 - 1.00 K/mcL LAB HEMETOLOGY METHOD 10/17/2024 10:14 AM EDT [facility] Eosinophils Absolute 0.10 0.00 - 0.50 K/mcL LAB HEMETOLOGY METHOD 10/17/2024 10:14 AM EDT [facility] Basophils Absolute 0.05 0.00 - 0.20 K/mcL LAB HEMETOLOGY METHOD 10/17/2024 10:14 AM [facility] Immature Granulocytes Absolute 0.07(H) 0.00 - 0.03 K/mcL LAB HEMETOLOGY METHOD 10/17/2024 10:14 AM EDT [facility] Blood Venous blood specimen / Unknown Venipuncture / Unknown 10/17/2024 6:22 AM EDT 10/17/2024 7:49 AM EDT us Annie Carbajal MD LAB BLOOD ORDERABLES Fin al Result [facility] [address] [place] [address], documented in this encounter Visit Diagnoses Diagnosis Essential (primary) hypertension Unspecified essential hypertension documented in this encounter Care Teams Rec Therapist Relationship Specialty Start Date End Date Annie Carbajal MD [address] [address] PCP - General Family Medicine 04/06/24 documented as of this encounter
--- NOTE | 2025-02-27 23:15 | ED.GENADULT ---
HPI - General Adult General Chief complaint: Recheck/Abnormal Lab/Rx Stated complaint: gtube issue Time Seen by Provider: 02/27/25 23:04 Source: EMS Mode of arrival: EMS Limitations: other (Nonverbal) History of Present Illness ED Provider: HPI narrative: Patient is presenting with G-tube that she removed, patient is coming from us facility, patient answers yes and no questions by shaking her head. She showed me the area of G-tube insertion and that is clean and dry no drainage. She has waived her head as a no to a question whether she has pain. Related Data Allergies Allergy/AdvReac Type Severity Reaction Status Date / Time No Known Allergies Allergy Verified 02/27/25 22:46 Review of Systems Constitutional: Constitutional: Reports as per [facility] Social History Social History Household Members Other:: she lives in a shelter Smoked in Last 30 Days: No Use of substances other than those prescribed or required for medical reasons: No Advance Directives: No Advance Directives Information Provided: No Physical Exam ED Vital Signs: Vital Signs - 24 hr 02/27/25 22:41 Temperature 97.4 F Pulse Rate 75 Respiratory Rate 18 Blood Pressure 127/57 L Pulse Oximetry 97 Oxygen Delivery Method Room Air BMI result Body Mass Index 16.1 Const Other: General: ?Chronically ill-appearing ? ?no scleral icterus ? ?Resp: ?No wheezing rales rhonchi no stridor moving air well ? Abd: ?Bowel sounds are present, no tenderness no rebound no rigidity, G-tube insertion site is clean dry ? ?MSK: FROM, strength 5/5 all extremities ? Skin: Warm, dry, intact, ? ?Neuro: ?Alert , sitting up, moving upper and lower extremities Procedures Procedure Narrative Procedure Narrative: Implied consent patient nonverbal G-tube replaced without complications, will be checked with [facility] Medical Decision Making Medical Decision Making [facility] Narrative: 11:19 PM 02/27/2025 (Dr. Jhonatan Gallegos): Benign abdominal exam, 20 [place] G-tube is what we see in our records, we will plan to replace and confirmed placement, did not feel further workup such as CT or blood work indicated at this time Differential Diagnosis Differential Diagnoses: The differential diagnosis associated with the presentation includes (G-tube insertion site cellulitis, hernia, abscess, SBO) Admission/Observation Consideration of admission/observation: Escalation of care including admission/observation considered Independent Interpretation I performed an independent interpretation of an: Plain X-Ray (G-tube placement confirmed) Independent Historian Clinical information obtained from an independent historian. History obtained from or confirmed by: EMS External Record Review External record reviewed: Outpatient record Chronic Conditions Patient?s care impacted by: Other (CVA, nonverbal) Discharge Plan Discharge Clinical Impression: Dislodged gastrostomy tube Patient Disposition: Home, Self-Care Additional Instructions: G-tube replaced, and confirmed placement with x-ray Okay to resume usage Print Language: Unable To Collect
--- NOTE | 2025-02-28 | PC.NURSE ---
pt waste/materials exchange specialist into hospital attire, G-tube replaced, awaiting confirmation of placement,
[2025-02-28 00:19] VITALS: BP 122/59; PULSE 88; RESP 16; TEMP 36.4; O2SAT 98
--- NOTE | 2025-02-28 00:25 | PC.NURSE ---
g-tube placement confirm, transportation booked back to the facility, report called and given to her nurse Cindi.
[2025-02-28 00:32] VITALS: BP 122/59; PULSE 88; RESP 16; TEMP 36.4; O2SAT 98
[2025-02-28 01:15] VITALS: BP 120/67; PULSE 84; RESP 16; O2SAT 99
== END 2025-02-28 01:21 | disposition home or self-care (01) ==
PROVIDERS: Emergency Provider Emergency Medicine
DX: R79.89 Other specified abnormal findings of blood chemistry (principal); T85.528A Displacement of other gastrointestinal prosthetic devices, implants and grafts, initial encounter; Y73.8 Miscellaneous gastroenterology and urology devices associated with adverse incidents, not elsewhere classified; R10.9 Unspecified abdominal pain
CPT/HCPCS: 43762; 74018; 99283; 99284

== ENCOUNTER → 2025-02-28 00:02 | Outpatient (BNV) | payer OTHER, MEDICARE, MEDICAID, SELFPAY | PROVIDERS: Emergency Provider Emergency Medicine; Visit Provider Radiology Neuroradiology | DX: Z43.1 Encounter for attention to gastrostomy (principal) | CPT/HCPCS: 74018 ==